=== PATIENT | female | born 1950 | race Caucasian/White ===

== ENCOUNTER 2016-11-18 10:32 | Inpatient (IN) | payer MEDICARE, MEDICAID ==
[~2016-11-18] VITALS: Ht 165.1 cm; Wt 65.8 kg
--- NOTE | 2016-11-18 10:53 | NUR ---
PT REC;D TO ER VIA EMS FROM [facility] AND [facility] . SOB TX IN FIELD SATS 98% IV HEPLOCKED LEFT AC 20G SITE GOOD DEMENTIAAWAITING EVALUATION BY ER PROVIDER.
[2016-11-18] MEDS ORDERED: IV NS 0.9% 1,000 ML BAG IV ONE (11:00)
[2016-11-18] MEDS ORDERED: CEFTRIAXONE 1GM BAG (ER ONLY) 50 ML IV ONE ×2 (11:00→11:02)
[2016-11-18] MEDS ORDERED: VANCOMYCIN 1 GM in IV D5W 250 ML IV ONE (11:00)
[2016-11-18] MEDS ORDERED: AZITHROMYCIN 500 MG in IV D5W 250 ML IV ONE (11:00)
[2016-11-18] MEDS ORDERED: IV NS 0.9% 1,000 ML ONE ×2 (11:02→11:37)
[2016-11-18] MEDS ORDERED: IV SET PRIMARY PUMP SET 1 EA INFUS.SET MC ONE ×2 (11:02→16:35)
[2016-11-18 11:10] LABS: BASOPHILS % (AUTO) 0.2 % (0.0-2.0); EOSINOPHILS % (AUTO) 0.2 % (0.0-6.0); HEMATOCRIT 50 % (33-45); HEMOGLOBIN 14.9 g/dL (11.5-14.8); LYMPHOCYTES # (AUTO) 0.7 /CMM (0.8-4.8); LYMPHOCYTES % (AUTO) 5.1 % (20.0-44.0); MEAN CORPUSCULAR HEMOGLOBIN 28 PG (26.0-33.0); MEAN CORPUSCULAR HGB CONC 30 g/dl (31.0-36.0); MEAN CORPUSCULAR VOLUME 92 fL (82-100); MONOCYTES # (AUTO) 1.3 /CMM (0.1-1.30); MONOCYTES % (AUTO) 10.1 % (2.0-12.0); NEUTROPHILS # (AUTO) 11.1 /CMM (1.8-8.9); NEUTROPHILS % (AUTO) 84.4 % (43.0-81.0); PLATELET COUNT (AUTO) 198 /CMM (150-450); RDW COEFFICIENT OF VARIATION 14.2 (11.5-15.0); RED BLOOD CELL COUNT(AUTO) 5.41 MIL/uL (4.0-5.2); WHITE BLOOD COUNT (AUTO) 13.1 K/uL (4.3-11.0)
--- NOTE | 2016-11-18 11:15 | NUR ---
ZITHRO IVP LEFT AC 20G INFUSING AND NS BOLUS X2 1000 SITE IS WELL ROCHEPHIN RT AC 20G INFUSING WELL PT ABLE TO FOLLOW COMMANDS. CONT TO MONITOR
[2016-11-18 11:33] LABS: CALCIUM, SERUM 8.6 mg/dL (8.5-10.1); CARBON DIOXIDE 33 mmol/L (21-32); CHLORIDE 101 mmol/L (98-107); GLUCOSE 110 mg/dL (74-106); SODIUM SERUM 137 mmol/L (136-145)
[2016-11-18 11:34] LABS: CREATININE 1.3 mg/dL (0.6-1.3); UREA NITROGEN, BLOOD 23 mg/dL (7-18)
--- NOTE | 2016-11-18 11:35 | NUR ---
IV SITES GOOD INFUSING WELL PT SKIN DRY PINK SLEEPING
[2016-11-18] MEDS ORDERED: IV SET PRIMARY 1 EA INFUS.SET MC ONE (11:36)
[2016-11-18] MEDS ORDERED: ACET-868 PO (11:37)
[2016-11-18] MEDS ORDERED: MAGN400O6 PO (11:37)
[2016-11-18] MEDS ORDERED: BENA20TA2 PO (11:37)
[2016-11-18] MEDS ORDERED: AMLO5TAB2 PO (11:37)
[2016-11-18] MEDS ORDERED: MIRT15TA PO (11:37)
[2016-11-18] MEDS ORDERED: PALI117D IM (11:37)
[2016-11-18] MEDS ORDERED: MULT1TAB11 PO (11:37)
[2016-11-18] MEDS ORDERED: BISA5TAB10 PO (11:37)
[2016-11-18 11:38] LABS: TROPONIN I < 0.017 ng/mL (0.00-0.056)
[2016-11-18 11:39] LABS: INR 1.02 (0.87-1.13); PROTHROMBIN TIME 10.6 SECS (9.5-12.7)
[2016-11-18 11:40] LABS: ALANINE AMINOTRANSFERASE 12 U/L (12-78); ALBUMIN 2.8 g/dL (3.4-5.0); ALKALINE PHOSPHATASE 105 U/L (46-116); ASPARTATE AMINOTRANSFERASE 18 U/L (15-37); BILIRUBIN,DIRECT 0.1 mg/dL (0.0-0.2); BILIRUBIN,TOTAL 0.4 mg/dL (0.2-1.0); TOTAL PROTEIN, SERUM 7.6 g/dL (6.4-8.2)
[2016-11-18] MEDS ORDERED: ONDANSETRON HCL/PF 4 MG/2 ML VIAL ONE (11:44)
[2016-11-18] MEDS ORDERED: ONDANSETRON HCL/PF 4 MG/2 ML VIAL IV ONE (12:00)
[2016-11-18 12:03] LABS: APPEARANCE,URINE Clear (CLEAR); BILIRUBIN,URINE Negative (NEGATIVE); BLOOD, URINE Trace-lysed Ery/uL (NEGATIVE); COLOR,URINE Yellow (YELLOW); KETONES,URINE Negative (NEGATIVE); LEUKOCYTE ESTERASE ,URINE Negative (NEGATIVE); NITRITE, URINE Negative (NEGATIVE); PH,URINE 5.5 (5.0-8.0); PROTEIN,URINE 30 mg/dl (NEGATIVE); UGLUCOSE Negative (NEGATIVE); UROBILINOGEN,URINE 0.2 EU/dL (0.2)
[2016-11-18 12:17] LABS: RBC,URINE 0-2 /HPF (0-2)
[2016-11-18 12:18] LABS: BACTERIA,URINE Few /HPF (None Seen); SQUAMOUS EPITHELIAL CELL,UR Moderate /HPF (None Seen); WBC,URINE 0-2 /HPF (0-3)
--- NOTE | 2016-11-18 12:52 | NUR ---
PAGED LVN FOR PANEL DR BOWLES
--- NOTE | 2016-11-18 12:58 | NUR ---
REPORT GIVEN TO CESILIA RN - RAFFI NURSE- CONTINUE PLAN OF CARE
--- NOTE | 2016-11-18 13:09 | NUR ---
TD/RN REPORT FROM ER RECEIVED REPORT FROM MICAELA GUPTA. FOR PT TO BE ADMITTED FOR PNEUMONIA UNDER THE CARE OF DR. BOWLES. AWAITING FOR PT'S ARRIVAL.
--- NOTE | 2016-11-18 13:15 | NUR ---
TD/LOG SAWYER TO TD - ROOM 119#1 PT ARRIVED VIA GURNEY FROM ER ACCOMPANIED BY ER NURSE AND BOTTOM STEEP TENDER. PT TRANSFERRED TO HOSPITAL BED. PT LETHARGIC. PT PLACE ON 15L O2 NON-REBREATHER MASK, SATURATING @ 98%, LUNG SOUNDS FROM DIMINISHED TO RHONCHI. ON TELE WITH SINUS RHYTHM, HR 97. IV SITES FLUSHED, PATENT, SL. CORBETT CATHETER INTACT, NOTED WITH YELLOW CLOUDY URINE OUTPUT WITH SEDIMENTS. ADMITTING PROTOCOLS BEING PROCESSED. AWAITING FOR ADMITTING ORDERS FROM DR. BOWLES. CL WITHIN REACHED AND SAFETY MAINTAINED. ON GOING MONITORING.
[2016-11-18 14:00] VITALS: BP 81/44
[2016-11-18] MEDS ORDERED: Z GUARD REMEDY 2 OZ OINT TP PRN (14:30)
[2016-11-18] MEDS ORDERED: ONDANSETRON HCL/PF 4 MG/2 ML VIAL IVP PRN (14:30)
[2016-11-18] MEDS ORDERED: ACETAMINOPHEN 325 MG TABLET PO PRN (14:30)
[2016-11-18] MEDS ORDERED: MAG HYDROX/AL HYDROX/SIMETH 30 ML UDC PO PRN (14:30)
[2016-11-18] MEDS ORDERED: ZOLPIDEM TARTRATE 5 MG TABLET PO PRN (14:30)
[2016-11-18] MEDS ORDERED: MAGNESIUM HYDROXIDE 30 ML UDC PO PRN ×2 (14:30)
[2016-11-18] MEDS: IV NS 0.9% 1,000 ML IV SCH (15:00)
[2016-11-18] MEDS ORDERED: IV NS 0.9% 1,000 ML IV ONE (15:00)
[2016-11-18 16:00] VITALS: BP 85/55
[2016-11-18 16:39] VITALS: BP 85/55
[2016-11-18] MEDS: ENOXAPARIN SODIUM 40 MG/0.4 ML DISP.SYRIN SQ SCH (16:51)
--- NOTE | 2016-11-18 19:45 | NUR ---
RN INITIAL NOTE RECEIVED PT IN NO ACUTE DISTRESS IN BED. PT IS A/O X 1 WITH PERIODS OF CONFUSION. PT IS ON O2 VIA NON REBREATHER MASK @ 15LPM AND TOLERATING WELL WITH O2 SAT @ 100%. PT NOT C/O ANY SOB, DIFFICULTY BREATHING OR PAIN AT THIS TIME. PT IS ON TELE WITH ST ON THE MONITOR. PT HAS F/C THAT IS CLEAN DRY INTACT AND PATENT WITH CLEAR YELLOW URINE DRAINING. PT HAS LAC 20G THAT IS CLEAN DRY INTACT AND PATENT WITH SALINE LOCK. PT HAS R HAND 20G THAT IS CLEAN DRY INTACT AND PATENT WITH NS @ 100ML/HR AND TOLERATING WELL. BED IN LOW LOCK POSITION WITH RIALS UP X 2. CALL LIGHT WITHIN REACH AND ALL SAFETY MEASURES ENSURED AND CARRIED OUT.
--- NOTE | 2016-11-18 19:55 | NUR ---
TD/RN AM SHIFT END NOTES PT HAS AWAKEN MORE ALERT. NO ACUTE CHANGE OF CONDITION. ALL NEEDS MET. PT ENDORSED TO PM NURSE TO CONTINUE CARE. CL WITHIN REACHED AND SAFETY MAINTAINED. DR. CASE NOTIFIED US THET HE IS THE PRIMARY MD. NOTED.
[2016-11-18 20:00] VITALS: BP 88/40
[2016-11-18] MEDS ORDERED: MIRTAZAPINE 15 MG TABLET PO SCH (22:00)
[2016-11-18 23:02] LABS: ABG PCO2 104.1 mmHg (35.0-45.0); ABG PO2 223.5 mmHg (75.0-100.0); AaDO2 237.6 mmHg; COHb 0.5 % (0.5-1.5); MetHb 0.7 % (0.0-1.5); O2Hb 97.8 % (94.0-97.0); SITE, ABG Left Radial; VENT MODE, BG NRB
--- NOTE | 2016-11-18 23:15 | NUR ---
RN NOTE DR SHANKS ARRIVED FROM ER TO INTUBATE PT.
--- NOTE | 2016-11-18 23:20 | NUR ---
RN NOTE RECEIVED ORDERS FROM DR CASE POST INTUBATION. READBACK PERFORMED AND WILL INPUT ORDERS.
--- NOTE | 2016-11-18 23:22 | NUR ---
RN NOTE RECEIVED ORDERS FROM DR CASE TO MOVE PT TO ICU AND INTUBATE DUE TO ABNORMAL ABG. READBACK ORDERS PERFORMED.
[2016-11-18 23:30] VITALS: BP 121/56
--- NOTE | 2016-11-18 23:30 | NUR ---
RN NOTE DR SHANKS INTUBATED PT SUCCESSFULLY WITH POSITIVE CO2 DETECTOR AND POSITIVE AUSCULTATION OF BILATERAL LUNG SOUNDS. AWAITING X RAY FOR POSITIVE PLACEMENT.
[2016-11-18] MEDS ORDERED: FENTANYL PF 100MCG/2ML AMPUL ONE (23:32)
[2016-11-18] MEDS ORDERED: PROPOFOL 100 ML IV ONE (23:32)
[2016-11-18] MEDS ORDERED: PANTOPRAZOLE 40 MG VIAL ONE (23:50)
[2016-11-19] VITALS (103 sets, daily range): BP systolic 38–137; BP diastolic 21–77
[2016-11-19] MEDS ORDERED: ROCURONIUM BROMIDE 50 MG/5 ML IV ONE
[2016-11-19] MEDS ORDERED: ETOMIDATE 2 MG/ML VIAL IV ONE
[2016-11-19] MEDS ORDERED: FENTANYL PF 100MCG/2ML AMPUL IV ONE
--- NOTE | 2016-11-19 | NUR ---
RN NOTE REMOVED ALL STK MED FOR PT SAFETY.
[2016-11-19] MEDS ORDERED: IV NS 0.9% 1,000 ML ONE (00:22)
[2016-11-19] MEDS ORDERED: NOREPINEPHRINE 16 MG in IV D5W 500 ML IV PRN ×3 (00:30→19:30)
[2016-11-19] MEDS ORDERED: IV NS 0.9% 1,000 ML IV PRN (00:30)
[2016-11-19] MEDS ORDERED: PANTOPRAZOLE 40 MG VIAL IV SCH (00:30)
[2016-11-19] MEDS ORDERED: AZITHROMYCIN 250 MG in IV D5W 250 ML IV SCH (00:30)
[2016-11-19] MEDS ORDERED: NOREPINEPHRINE 4 MG/4 ML AMPUL IV ONE (00:34)
[2016-11-19] MEDS ORDERED: IV D5W 500 ML IV ONE (00:34)
[2016-11-19] MEDS ORDERED: IV SET PRIMARY PUMP SET 1 EA INFUS.SET MC ONE ×6 (00:40→21:38)
[2016-11-19 01:14] LABS: ABG BASE EXCESS -5.4 mmol/L; ABG OXYGEN SATURATION 99.3 % (92.0-98.5); ABG PCO2 52.7 mmHg (35.0-45.0); ABG PH 7.245 (7.350-7.450); ABG PO2 472.9 mmHg (75.0-100.0); AaDO2 114.8 mmHg; COHb 0.3 % (0.5-1.5); MetHb 0.5 % (0.0-1.5); O2Hb 98.5 % (94.0-97.0); PEEP,BG 0 cm H2O; SITE, ABG Right Radial; VT, ABG 450 mL
[2016-11-19] MEDS ORDERED: ALBUTEROL FS 2.5 MG/0.5 ML VIAL.NEB NEB PRN (01:30)
[2016-11-19] MEDS ORDERED: IPRATROPIUM NEB FS 0.5 MG/2.5 ML AMPUL.NEB NEB PRN (01:30)
[2016-11-19] MEDS: IPRATROPIUM NEB FS 0.5 MG/2.5 ML AMPUL.NEB NEB SCH ×6 (02:55→23:12)
[2016-11-19] MEDS: ALBUTEROL FS 2.5 MG/0.5 ML VIAL.NEB NEB SCH ×6 (02:55→23:12)
[2016-11-19] MEDS: PROPOFOL 100 ML IV PRN ×2 (03:26→18:24)
[2016-11-19] MEDS: IV NS 0.9% 1,000 ML IV SCH (03:47)
[2016-11-19 05:01] LABS: BASOPHILS % (AUTO) 0.1 % (0.0-2.0); HEMATOCRIT 42 % (33-45); HEMOGLOBIN 13.3 g/dL (11.5-14.8); LYMPHOCYTES # (AUTO) 1.2 /CMM (0.8-4.8); LYMPHOCYTES % (AUTO) 9.8 % (20.0-44.0); MEAN CORPUSCULAR HEMOGLOBIN 29 PG (26.0-33.0); MEAN CORPUSCULAR HGB CONC 32 g/dl (31.0-36.0); MEAN CORPUSCULAR VOLUME 91 fL (82-100); MONOCYTES # (AUTO) 1.8 /CMM (0.1-1.30); MONOCYTES % (AUTO) 14.7 % (2.0-12.0); NEUTROPHILS % (AUTO) 75.4 % (43.0-81.0); PLATELET COUNT (AUTO) 164 /CMM (150-450); RDW COEFFICIENT OF VARIATION 15.1 (11.5-15.0); RED BLOOD CELL COUNT(AUTO) 4.58 MIL/uL (4.0-5.2)
[2016-11-19 05:17] LABS: CALCIUM, SERUM 7.2 mg/dL (8.5-10.1); CREATININE 1.8 mg/dL (0.6-1.3); MAGNESIUM 1.7 mg/dL (1.8-2.4); PHOSPHORUS 5.5 mg/dL (2.5-4.9); POTASSIUM 5.2 mmol/L (3.5-5.1)
[2016-11-19 05:51] LABS: BAND % (MANUAL) 8 % (0.0-5.0); LYMPHOCYTES % (MANUAL) 9 % (16-48); MONOCYTES % (MANUAL) 10 % (0-11.0); NEUTROPHILS % (MANUAL) 73 (42-76)
--- NOTE | 2016-11-19 07:00 | NUR ---
PT RECEIVED ORALLY INTUBATED ON MECHANICAL VENT W/ SETTINGS PER MD. VENT IN RED OUTLET, AMBUBAG AT BEDSIDE, VENT ALARMS CHECKED AND AUDIBLE. ETT SECURED W/ ANCHOFAST AND PATENT. PT SX'ED AND LAVAGED PRN. NO RESP DISTRESS NOTED. PLAN IS TO CONTINUE W/ CURRENT CARE PER MD ORDERS AND MONITOR FOR CHANGES IN STATUS. Addendum: 11/19/16 at 0838 by CELESTE WALTER RT Amended: Links added.
--- NOTE | 2016-11-19 07:15 | NUR ---
RN NOTE PLACED NG TUBE VIA MOUTH WITH POSITIVE PLACEMENT BY AUSCULTATION OF AIR AND AWAITING CXR.
--- NOTE | 2016-11-19 07:22 | NUR ---
RN CLOSING NOTE PT REMAINS IN NO ACUTE DISTRESS POST INTUBATION. PT TOLERATING VENT SETTINGS WHICH ARE AC 12 TV 400 FIO2 40 PEEP 5. PT O2 SAT @ 94%. ALL NEEDS MET, ALL ORDERS CARRIED OUT. WILL ENDORSE TO AM RN FOR CONTINUITY OF CARE.
[2016-11-19] MEDS ORDERED: PANTOPRAZOLE 40 MG TABLET.DR PO SCH (07:30)
--- NOTE | 2016-11-19 07:30 | NUR ---
RT MED NOTE HHN MEDS NOT AVAILABLE FROM [employer]. WILL ATTEMPT AT LATER TIME
--- NOTE | 2016-11-19 07:59 | NUR ---
ICU/RN INITIAL NOTES,AM RECEIVED PT INTUBATED ETT 7.5, 23 CM AT THE LIP. PT ON VENT SETTINGS ORDERED BY MD, NO ACUTE DISTRESS NOTED AT THIS TIME. PT SEDATED ON 15MCG OF DIPRIVAN. LEVOPHED INFUSING FOR BP SUPPORT. PT SINUS TACKY ON TELE. CORBETT CATH IN PLACE DRAINING YELLOW URINE. ORDERS PLACED FOR PICC LINE, CONSENT IN CHART SIGNED BY MD. ALL NEEDS WILL BE MET, SAFETY MEASURES TAKEN, BED IN LOW POSITION, SIDE RAILS UP. BILATERAL WRIST RESTRAINS ON, ASSESSED PER PROTOCOL.
[2016-11-19] MEDS ORDERED: MULTIVIT, IRON, MIN NO. 8, FA 1 TAB PO SCH (09:00)
--- NOTE | 2016-11-19 09:00 | NUR ---
ICU/RN: SEDATION VACATION: DIPRIVAN TITRATED OFF, PT OPENED EYES, FOLLOWS COMMANDS. RESUME DIPRIVAN PER PROTOCOL
[2016-11-19] MEDS: Magnesium 1GM/D5W 100ML PREMIX 100 ML IV SCH ×3 (09:48→13:00)
[2016-11-19] MEDS: PANTOPRAZOLE 40 MG VIAL IV SCH (09:48)
[2016-11-19] MEDS ORDERED: SECONDARY IV SET 1 EA INFUS.SET MC ONE (09:58)
[2016-11-19] MEDS: methylPREDNISolone SOD SUCC 125 MG/2ML VIAL IV SCH ×2 (11:21→12:59)
[2016-11-19] MEDS: CEFTRIAXONE 1 G in IV D5W 50 ML IV SCH (11:25)
[2016-11-19] MEDS: AZITHROMYCIN 250 MG in IV D5W 250 ML IV SCH (12:54)
[2016-11-19] MEDS: IV NS 0.9% 1,000 ML IV PRN (13:26)
[2016-11-19] MEDS ORDERED: DEXTROSE 50%-WATER 50 ML DISP.SYRIN IV PRN (15:30)
[2016-11-19] MEDS: BLOOD SUGAR DIAGNOSTIC 1 EACH STRIP IN SCH ×2 (18:24→23:19)
--- NOTE | 2016-11-19 18:30 | NUR ---
ICU/RN: BLOOD GLUCOSE 175. INSULIN HELD DUE TO PT NPO. AWARE. WILL CONTINUE TO MONITOR AND ASSESS
--- NOTE | 2016-11-19 19:28 | NUR ---
ICU/RN ENDING NOTES,AM REPORT ENDORSED TO NIGHT NURSE FOR CONTINUATION OF CARE. ALL NEEDS MET. PT INTUBATED, ETT 7.5, 23 CM AT THE LIP. ON VENT SETTINGS ORDERED BY MD, NO ACUTE DISTRESS NOTED. PT BATHED, TURNED AND REPOSITIONED. LEVO INFUSING FOR BP SUPPORT, DIPRIVAN INFUSING AT 15MCG FOR SEDATION. SAFETY MEASURES TAKEN, BED IN LOW POSITION, SIDE RAILS UP, CALL LIGHT WITHIN REACH. WILL CONTINUE CARE
[2016-11-19] MEDS: INSULIN REGULAR, HUMAN 100 UNIT/ML 3 ML VIAL SQ PRN ×2 (19:32→23:19)
--- NOTE | 2016-11-19 19:39 | NUR ---
PT RECEIVED ORALLY INTUBATED W/ 7.5 ETT @ 23 CM LIP WITH NOTED SETTING PER MD ORDERS. VENT PLUGGED INTO RED OUTLET. SX MODERATE AMOUNT OF WHITE THICK SECRETIONS, BILATERAL BS NOTED. AMBU BAG AT [facility]. ALARM SET AND AUDIBLE PER POLICY. DISCONNECT ALARM VERIFIED. NO SOB OR RESP DISTRESS NOTED AT THIS TIME. WILL CONTINUE TO MONITOR THE PATIENT.
--- NOTE | 2016-11-19 20:06 | NUR ---
RN NOTES RECEIVED PX SEDATED ON PROPOFOL, EASILY AROUSABLE WITH LIGHT PAIN, ETT WITH CUFF INTACT TO VENT, OGT CLAMPED, ALL IV ACCESS FLUSHED PATENT INTACT, WITH BILAT SOFT WRIST RESTRAINTS, PX WAKES UP EPISODICALLY, ATTEMPTING TO REACH FOR BED; CORBETT CATH TAPED TO THIGH TO BAG BY GRAVITY, HEELS OFFLOADED; REPOSITIONED, HOB AT 30 ANGLE, SUCTIONED ORALL AND VIA ETT. V/S WNL, ON LEVOPHED DRIP.
[2016-11-19] MEDS: ENOXAPARIN SODIUM 40 MG/0.4 ML DISP.SYRIN SQ SCH (21:45)
--- NOTE | 2016-11-19 23:20 | NUR ---
RN NOTES NO INSULIN GIVEN PX IS NPO AND NO D5 CONTAINING IVF IS RUNNING.
[2016-11-20] VITALS (79 sets, daily range): BP systolic 96–146; BP diastolic 52–89
[2016-11-20] MEDS: PROPOFOL 100 ML IV PRN ×3 (01:05→18:46)
[2016-11-20] MEDS: IV NS 0.9% 1,000 ML IV PRN ×3 (01:05→21:04)
[2016-11-20] MEDS: ALBUTEROL FS 2.5 MG/0.5 ML VIAL.NEB NEB SCH ×5 (03:45→19:57)
[2016-11-20] MEDS: IPRATROPIUM NEB FS 0.5 MG/2.5 ML AMPUL.NEB NEB SCH ×5 (03:45→19:57)
--- NOTE | 2016-11-20 04:55 | NUR ---
RN NOTES CONDITION AND NEURO STATUS UNCHANGED; CONTINUED LEVOPHED TITRATION, NOW DOWN TO 5 MCG/MIN; CLEANED PX AND CHANGED GOWN AND BED LINENS, ORAL CARE, CORBETT CARE RENDERED, NO SKIN BREAKDOWN, SKIN REDNESS ON BILAT BUTTOCKS HAS LESSENED COMPARED TO PREVIOUS PICTURE; NO NEW SKIN BREAKDOWN.
[2016-11-20] MEDS: INSULIN REGULAR, HUMAN 100 UNIT/ML 3 ML VIAL SQ PRN (05:25)
[2016-11-20] MEDS: BLOOD SUGAR DIAGNOSTIC 1 EACH STRIP IN SCH ×4 (05:25→23:39)
--- NOTE | 2016-11-20 06:32 | NUR ---
RN NOTES CONDITION AND NEURO STATUS UNCHANGED; RESPOSITIONED AND SUCTIONED ORALLY AND VIA ETT; NO NEW SKIN BREAKDOWN, IV ACCESS FLUSHED PATENT INTACT; V/S WNL, CONTINUED LEVOPHED TITRATION. WILL ENDORSE TO NEXT RN.
--- NOTE | 2016-11-20 07:18 | NUR ---
RN NOTES REPORT GIVEN TO ARPI RN FOR COTINUITY OF CARE.
--- NOTE | 2016-11-20 07:40 | NUR ---
ICU/RN INITIAL NOTES,AM RECEIVED PT INTUBATED ETT 7.5, 23 CM AT THE LIP. PT ON VENT SETTINGS ORDERED BY MD, NO ACUTE DISTRESS NOTED AT THIS TIME. PT SEDATED ON 20 MCG OF DIPRIVAN. LEVOPHED INFUSING, LOW DOSE FOR BP SUPPORT. PT SINUS ON TELE. CORBETT CATH IN PLACE DRAINING YELLOW URINE. OG TUBE IN PLACE AND CLAMPED, PLACEMENT CHECKED AND VERIFIED. ALL NEEDS WILL BE MET, SAFETY MEASURES TAKEN, BED IN LOW POSITION, SIDE RAILS UP. BILATERAL WRIST RESTRAINS ON, ASSESSED PER PROTOCOL.
[2016-11-20 08:38] LABS: HEMATOCRIT 40 % (33-45); HEMOGLOBIN 12.8 g/dL (11.5-14.8); LYMPHOCYTES # (AUTO) 0.5 /CMM (0.8-4.8); LYMPHOCYTES % (AUTO) 6.5 % (20.0-44.0); MEAN CORPUSCULAR HEMOGLOBIN 29 PG (26.0-33.0); MEAN CORPUSCULAR HGB CONC 33 g/dl (31.0-36.0); MEAN CORPUSCULAR VOLUME 91 fL (82-100); MONOCYTES # (AUTO) 0.3 /CMM (0.1-1.30); MONOCYTES % (AUTO) 3.3 % (2.0-12.0); NEUTROPHILS # (AUTO) 7.4 /CMM (1.8-8.9); NEUTROPHILS % (AUTO) 90.2 % (43.0-81.0); PLATELET COUNT (AUTO) 174 /CMM (150-450); RDW COEFFICIENT OF VARIATION 15.1 (11.5-15.0); RED BLOOD CELL COUNT(AUTO) 4.36 MIL/uL (4.0-5.2); WHITE BLOOD COUNT (AUTO) 8.2 K/uL (4.3-11.0)
[2016-11-20 08:47] LABS: CREATININE 1.9 mg/dL (0.6-1.3); POTASSIUM 4.5 mmol/L (3.5-5.1)
[2016-11-20] MEDS: PANTOPRAZOLE 40 MG VIAL IV SCH (08:51)
[2016-11-20] MEDS: predniSONE 20 MG TABLET NG SCH (08:51)
[2016-11-20 09:00] LABS: ABG BASE EXCESS -4.6 mmol/L; ABG OXYGEN SATURATION 97.2 % (92.0-98.5); ABG PCO2 52.1 mmHg (35.0-45.0); ABG PH 7.259 (7.350-7.450); ABG PO2 106.3 mmHg (75.0-100.0); AaDO2 82.7 mmHg; COHb 0.3 % (0.5-1.5); MetHb 0.5 % (0.0-1.5); O2Hb 96.4 % (94.0-97.0); PEEP,BG 5 cm H2O; SITE, ABG Right Radial; VT, ABG 400 mL
--- NOTE | 2016-11-20 09:00 | NUR ---
ICU/RN SEDATION VACATION DONE, PT OPENS EYES, FOLLOWS COMMANDS. RESUMED SEDATION PER PROTOCOL.
[2016-11-20] MEDS ORDERED: IV SET PRIMARY PUMP SET 1 EA INFUS.SET MC ONE (11:20)
[2016-11-20] MEDS: CEFTRIAXONE 1 G in IV D5W 50 ML IV SCH (11:22)
[2016-11-20] MEDS: AZITHROMYCIN 250 MG in IV D5W 250 ML IV SCH (11:55)
--- NOTE | 2016-11-20 18:19 | NUR ---
RT NOTE: PATIENT RECEIVED ORALLY INTUBATED WITH 7.5 ETT SECURED WITH ANCHOR FAST AT 23 CM MID LIP LINE ON VENT. ETT MOVED FROM RIGHT TO LEFT SIDE OF MOUTH PER POLICY. ALARMS VERIFIED AND AUDIBLE. VENT CHANGES PER MD ORDER. SUCTIONED AND LAVAGED MODERATE-LARGE AMOUNT OF THIN CLEAR/WHITE SECRETIONS VIA ETT AND ORALLY. VENT PLUGGED INTO RED OUTLET. AMBU BAG AT [facility].
--- NOTE | 2016-11-20 18:35 | NUR ---
ICU/RN ENDING NOTES,AM REPORT WILL BE ENDORSED TO NIGHT NURSE FOR CONTINUATION OF CARE. ALL NEEDS MET. PT ON DIPRIVAN FOR SEDATION, LEVOPHED OFF SINCE THIS AM, PT TOLERATING WELL, MAINTAINING BP >90. PT SINUS ON TELE. PT BATHE, TURNED AND REPOSITIONED, LINENS CHANGED. ALL NEEDS MET, SAFETY MEASURES TAKEN, BED IN LOW POSITION, SIDE RAILS UP, CALL LIGHT WITHIN REACH. PER MD ORDERS PT WILL BE WEANED TOMORROW.
--- NOTE | 2016-11-20 19:00 | NUR ---
RN INITIAL NOTES RECEIVED THE PATIENT SEDATED ON BED WITH DIPRIVAN @ 25MCG/KG/MIN, EASILY AROUSABLE, ABLE TO FOLLOW COMMANDS. ON VENT, AC 12, TV 450, 40% FIO2, PEEP 5, ETT 7.5/23@LIP, SATURATING WELL, NO S/S OF RESP DISTRESS. SR ON THE MONITOR, HR 80-90'S. CORBETT CATH INTACT. BILATERAL SOFT WRIST RESTRAINTS IN PLACE FOR SAFETY. RIGHT UPPER ARM PICC WITH NS @ 75MLS/HR, FLUSHED AND PATENT, NO S/S OF INFILTRATION/INFECTION, DRESSING CDI. BED LOW AND LOCKED, SIDERAILS UP. WILL MONITOR
[2016-11-20] MEDS: ENOXAPARIN SODIUM 40 MG/0.4 ML DISP.SYRIN SQ SCH (20:30)
[2016-11-21] VITALS (41 sets, daily range): BP systolic 117–156; BP diastolic 64–86
[2016-11-21] MEDS: IPRATROPIUM NEB FS 0.5 MG/2.5 ML AMPUL.NEB NEB SCH ×6 (00:21→19:50)
[2016-11-21] MEDS: ALBUTEROL FS 2.5 MG/0.5 ML VIAL.NEB NEB SCH ×6 (00:21→19:50)
[2016-11-21] MEDS ORDERED: IV SET PRIMARY PUMP SET 1 EA INFUS.SET MC ONE ×3 (00:50→23:33)
[2016-11-21] MEDS: PROPOFOL 100 ML IV PRN ×5 (00:54→21:33)
[2016-11-21] MEDS: BLOOD SUGAR DIAGNOSTIC 1 EACH STRIP IN SCH ×4 (05:31→23:40)
--- NOTE | 2016-11-21 06:30 | NUR ---
RN CLOSING NOTES PT REMAINS STABLE OF THE MOMENT. ALL DUE MEDS GIVEN, AM CARE PROVIDED. WILL ENDORSE CONTINUITY OF CARE TO AM RN
--- NOTE | 2016-11-21 08:06 | NUR ---
HOOP MAKER DIPRIVAN DRIP STOPPED ALERT ORIENTED X 2 STARTED WEANING PROCESS, VENT CHANGES DONE BY RT SUCTIONED SECRETION NECESSARY
[2016-11-21] MEDS: PANTOPRAZOLE 40 MG VIAL IV SCH (08:14)
[2016-11-21] MEDS: predniSONE 20 MG TABLET NG SCH (08:14)
[2016-11-21 09:10] LABS: ABG BASE EXCESS -5.1 mmol/L; ABG PCO2 57.2 mmHg (35.0-45.0); ABG PH 7.226 (7.350-7.450); ABG PO2 83.4 mmHg (75.0-100.0); AaDO2 99.7 mmHg; COHb 0.2 % (0.5-1.5); MetHb 0.5 % (0.0-1.5); O2Hb 93.3 % (94.0-97.0); PEEP,BG 5 cm H2O; SITE, ABG Right Radial; VT, ABG 450 mL
--- NOTE | 2016-11-21 09:27 | NUR ---
RESIDENT SERVICES SUPERVISOR PATIENT STILL HAS RESPIRATORY ACIDOSIS, PLACED BACK TO MECHANICAL VENTILATORY SUPPORT DIRPIVAN RESTARTED
[2016-11-21] MEDS: IV NS 0.9% 1,000 ML IV PRN ×2 (09:55→23:37)
[2016-11-21] MEDS ORDERED: SECONDARY IV SET 1 EA INFUS.SET MC ONE (11:11)
[2016-11-21] MEDS: CEFTRIAXONE 1 G in IV D5W 50 ML IV SCH (11:16)
[2016-11-21] MEDS ORDERED: GLUCERNA 1,000 ML BOTTLE NG PRN (12:00)
[2016-11-21] MEDS: AZITHROMYCIN 250 MG in IV D5W 250 ML IV SCH (12:15)
[2016-11-21] MEDS ORDERED: GLYTROL 1,000 ML BAG NG PRN (12:30)
--- NOTE | 2016-11-21 13:57 | NUR ---
RT NOTE: PATIENT RECEIVED ORALLY INTUBATED WITH 7.5 ETT SECURED WITH ANCHOR FAST AT 23 CM MID LIP LINE ON VENT. PATIENT WAS WEANED THIS MORNING PER 'S ORDER BUT WAS NO ABLE TO TOLERATE. ABG DONE AND REPORTED TO DR. LAWRENCE. PER MD ORDER PATIENT WAS PLACED BACK ON AC 12, VT 500, 35%, PEEP +5. ETT MOVED FROM RIGHT TO LEFT SIDE OF MOUTH PER POLICY. ALARMS VERIFIED AND AUDIBLE. SUCTIONED AND LAVAGED SMALL-MODERATE AMOUNT OF THIN WHITE SECRETIONS VIA ETT AND ORALLY. VENT PLUGGED INTO RED OUTLET. AMBU BAG AT [facility].
[2016-11-21] MEDS: LACTOBACILLUS RHAMNOSUS GG 1 EACH CAP.SPRINK GT SCH (17:26)
--- NOTE | 2016-11-21 19:10 | NUR ---
rn:icu: pt received in bed, able to open eyes and moving upper extremities. despite reorientation pt continues to reach for vital tubes and line. pt requires bilateral soft wrist restraints for patient safety. diprivan increased from 45 to 50mcg/kg/min. pt without distress. will continue to monitor closely.
[2016-11-21] MEDS: ENOXAPARIN SODIUM 40 MG/0.4 ML DISP.SYRIN SQ SCH (20:17)
[2016-11-22] VITALS (42 sets, daily range): BP systolic 92–183; BP diastolic 61–103
[2016-11-22] MEDS: IPRATROPIUM NEB FS 0.5 MG/2.5 ML AMPUL.NEB NEB SCH ×7 (00:03→22:59)
[2016-11-22] MEDS: ALBUTEROL FS 2.5 MG/0.5 ML VIAL.NEB NEB SCH ×7 (00:03→22:59)
[2016-11-22] MEDS: PROPOFOL 100 ML IV PRN ×4 (03:02→18:37)
[2016-11-22 04:48] LABS: BASOPHILS % (AUTO) 0.2 % (0.0-2.0); EOSINOPHILS % (AUTO) 0.1 % (0.0-6.0); HEMATOCRIT 34 % (33-45); HEMOGLOBIN 11.1 g/dL (11.5-14.8); LYMPHOCYTES % (AUTO) 12.1 % (20.0-44.0); MEAN CORPUSCULAR HEMOGLOBIN 29 PG (26.0-33.0); MEAN CORPUSCULAR HGB CONC 33 g/dl (31.0-36.0); MEAN CORPUSCULAR VOLUME 89 fL (82-100); MONOCYTES # (AUTO) 0.8 /CMM (0.1-1.30); MONOCYTES % (AUTO) 9.6 % (2.0-12.0); NEUTROPHILS # (AUTO) 6.2 /CMM (1.8-8.9); PLATELET COUNT (AUTO) 190 /CMM (150-450); RDW COEFFICIENT OF VARIATION 14.5 (11.5-15.0); RED BLOOD CELL COUNT(AUTO) 3.79 MIL/uL (4.0-5.2); WHITE BLOOD COUNT (AUTO) 7.9 K/uL (4.3-11.0)
[2016-11-22 04:49] LABS: CALCIUM, SERUM 7.7 mg/dL (8.5-10.1); CREATININE 1.6 mg/dL (0.6-1.3); POTASSIUM 3.8 mmol/L (3.5-5.1)
[2016-11-22] MEDS: BLOOD SUGAR DIAGNOSTIC 1 EACH STRIP IN SCH ×3 (05:18→17:23)
[2016-11-22] MEDS: LACTOBACILLUS RHAMNOSUS GG 1 EACH CAP.SPRINK GT SCH ×2 (08:05→17:23)
[2016-11-22] MEDS: PANTOPRAZOLE 40 MG VIAL IV SCH (08:06)
[2016-11-22] MEDS: predniSONE 20 MG TABLET NG SCH (08:06)
[2016-11-22 08:45] LABS: ABG BASE EXCESS -2.2 mmol/L; ABG OXYGEN SATURATION 93.5 % (92.0-98.5); ABG PCO2 52.6 mmHg (35.0-45.0); ABG PH 7.292 (7.350-7.450); ABG PO2 77.7 mmHg (75.0-100.0); AaDO2 110.7 mmHg; COHb 0.3 % (0.5-1.5); MetHb 0.5 % (0.0-1.5); O2Hb 92.8 % (94.0-97.0); PEEP,BG 5 cm H2O; SITE, ABG Right Radial; VT, ABG 500 mL
--- NOTE | 2016-11-22 09:40 | NUR ---
DR. LAWRENCE SHOWED AM ABG. ORDERS TO INCREASE TV TO 550. NO WEANING TRIAL TODAY.
[2016-11-22] MEDS: CEFTRIAXONE 1 G in IV D5W 50 ML IV SCH (10:16)
[2016-11-22] MEDS: AZITHROMYCIN 250 MG in IV D5W 250 ML IV SCH (10:48)
[2016-11-22] MEDS: INSULIN REGULAR, HUMAN 100 UNIT/ML 3 ML VIAL SQ PRN (11:19)
[2016-11-22] MEDS: IV NS 0.9% 1,000 ML IV PRN (13:05)
--- NOTE | 2016-11-22 15:00 | NUR ---
RT NOTE: PATIENT RECEIVED ORALLY INTUBATED WITH 7.5 ETT SECURED WITH ANCHOR FAST AT 23 CM MID LIP LINE ON VENT. ETT MOVED FROM RIGHT TO LEFT SIDE OF MOUTH PER POLICY. ALARMS VERIFIED AND AUDIBLE. VENT CHANGES PER MD ORDER. SUCTIONED AND LAVAGED MODERATE-LARGE AMOUNT OF THIN WHITE BLOOD TINGED SECRETIONS VIA ETT AND ORALLY. VENT PLUGGED INTO RED OUTLET. AMBU BAG AT [facility].
[2016-11-22] MEDS: IV D5W 1,000 ML IV PRN (17:27)
--- NOTE | 2016-11-22 18:18 | NUR ---
Referral sent to [facility] ICU bed sent to Josephine -intake [phone] Mcfarland request. Galeana will eval in am per Josephine at [place] Addendum: 11/22/16 at 1818 by MANUEL ESQUIVEL RN Amended: Links added.
[2016-11-22] MEDS: HYDROCODONE/APAP 5/325MG 1 EACH TABLET PO PRN (18:46)
--- NOTE | 2016-11-22 19:24 | NUR ---
GALVANOMETER ASSEMBLER: RN RECEIVED CALL FROM DR CASE MADE AWARE ABOUT ELEVATED BP 182/89, MD DOESN'T WANT TO START ANY BP MEDICATION UNLESS SBP> 220 AND DIASTOLIC >120, JUST ORDERED LASIX 20 MG IV DAILY. WILL GIVE LASIX 20 MG IV FIRST DOSE NOW PER MD.
[2016-11-22] MEDS ORDERED: IV SET PRIMARY PUMP SET 1 EA INFUS.SET MC ONE (19:32)
--- NOTE | 2016-11-22 19:37 | NUR ---
RT PATIENT REC'D ORALLY INTUBATED ON [facility] VENT WITH SETTINGS SET PER MD NATALYA PINEDA. VENT ALARMS CHECKED + AUDIBLE. CUFF PRESSURE CHECKED LAN ENGINEER. ETT SECURE AND IN PROPER POSITION. VENT PLUGGED INTO RED OUTLET. B/S DIM COARSE. SX'D WITH SM/MD GUANT PALE SEMITHICK SECRETIONS. NO DISTRESS AT THIS TIME. AMBU BAG AT [facility]. CONT CURRENT PLAN OF RESP CARE. Addendum: 11/22/16 at 1938 by CIARA LORA RT Amended: Links added.
[2016-11-22] MEDS: FUROSEMIDE 20 MG/2 ML VIAL IV SCH (19:40)
--- NOTE | 2016-11-22 20:00 | NUR ---
SINGLE STAYER OPERATOR; RECEIVED THE PATIENT SEDATED WITH DIPRIVAN @ 40MCG/KG/MIN, ON VENT, AC 12, TV 450, 35% FIO2, PEEP 5, ETT 7.5/23@LIP, SATURATING WELL, NO S/S OF RESP DISTRESS. SR ON THE MONITOR, HR 80-90'S. CORBETT CATH INTACT. PLACE FOR SAFETY. RIGHT UPPER ARM PICC WITH NS @ 75MLS/HR, FLUSHED AND PATENT, NO S/S OF INFILTRATION/INFECTION, DRESSING CDI. BED LOW AND LOCKED, SIDERAILS UP. WILL MONITOR Addendum: 11/22/16 at 2226 by KATHERINE GÓMEZ RN D5 W AT 50 ML/HR.
[2016-11-22] MEDS: ENOXAPARIN SODIUM 40 MG/0.4 ML DISP.SYRIN SQ SCH (21:10)
[2016-11-23] VITALS (35 sets, daily range): BP systolic 114–180; BP diastolic 69–103
[2016-11-23] MEDS: BLOOD SUGAR DIAGNOSTIC 1 EACH STRIP IN SCH ×5 (00:11→23:39)
[2016-11-23] MEDS: PROPOFOL 100 ML IV PRN ×5 (00:36→19:50)
[2016-11-23] MEDS: ALBUTEROL FS 2.5 MG/0.5 ML VIAL.NEB NEB SCH ×6 (03:53→23:25)
[2016-11-23] MEDS: IPRATROPIUM NEB FS 0.5 MG/2.5 ML AMPUL.NEB NEB SCH ×6 (03:53→23:25)
[2016-11-23] MEDS: FUROSEMIDE 20 MG/2 ML VIAL IV SCH (08:34)
[2016-11-23] MEDS: predniSONE 20 MG TABLET NG SCH (08:34)
[2016-11-23] MEDS: LACTOBACILLUS RHAMNOSUS GG 1 EACH CAP.SPRINK GT SCH ×2 (08:34→17:05)
[2016-11-23] MEDS: PANTOPRAZOLE 40 MG VIAL IV SCH (08:34)
[2016-11-23] MEDS: AZITHROMYCIN 250 MG in IV D5W 250 ML IV SCH (10:05)
[2016-11-23] MEDS: CEFTRIAXONE 1 G in IV D5W 50 ML IV SCH (10:06)
[2016-11-23] MEDS ORDERED: SECONDARY IV SET 1 EA INFUS.SET MC ONE (10:13)
[2016-11-23] MEDS: IV D5W 1,000 ML IV PRN (10:19)
[2016-11-23 10:42] LABS: ABG BASE EXCESS 2.8 mmol/L; ABG OXYGEN SATURATION 94.7 % (92.0-98.5); ABG PCO2 47.8 mmHg (35.0-45.0); ABG PH 7.392 (7.350-7.450); ABG PO2 75.9 mmHg (75.0-100.0); AaDO2 118.1 mmHg; COHb 0.7 % (0.5-1.5); MetHb 0.7 % (0.0-1.5); O2Hb 93.4 % (94.0-97.0); PEEP,BG 5 cm H2O; SITE, ABG Right Radial; VT, ABG 500 mL
[2016-11-23] MEDS: INSULIN REGULAR, HUMAN 100 UNIT/ML 3 ML VIAL SQ PRN (12:31)
--- NOTE | 2016-11-23 12:42 | NUR ---
Report given to Elza ORTEGA for continuity of care. Vitals stable, afebrile, normotensive. Sedated with propofol gtts @ 35mcg. No pressor. Skin intact. Suctioned mouth, oral care done. small thick white secretions on ETT suction. Addendum: 11/23/16 at 1246 by CITLALLI KUO RN No vent setting change, ETT 7.5 @ 23cm.
[2016-11-23] MEDS: GLYTROL 1,000 ML BAG NG PRN (12:49)
--- NOTE | 2016-11-23 12:50 | NUR ---
LABORER ADJUSTABLE STEEL JOIST NOTE RCVD PT INTUBATED, SEDATED ENDORSED BY SHANNON HARLEY. SR ON TELE. TOLERATING ORDERED VENT SETTINGS. ETT 7.5 22 AT LIP. TOLERATING TUBE FEEDING RATE. 20ML RESIDUAL OBSERVED UPON ASPIRATION. KIET PICC C/D/I/PATENT. NO S/O INFILTRATION/PHLEBITIS OBSERVED IVF INFUSING. CORBETT DRAINING PALE YELLOW URINE. WILL CONTINUE TO MONITOR PT FOR SAFETY AND COMFORT. BED IN LOW AND LOCKED POSITION.
[2016-11-23] MEDS ORDERED: IV NS 0.9% 250 ML IV ONE (16:51)
--- NOTE | 2016-11-23 18:30 | NUR ---
ENDING VISITOR INFORMATION ASSISTANT NOTE PT REMAINS INTUBATED, SEDATED ON DIPRIVAN. SHOWING NO S/O DISTRESS/PAIN. TOLERATING ORDERED VENT SETTINGS. SR ON TELE. CORBETT DRAINING PALE, GREEN TINTED URINE. TUBE FEEDING RESIDUAL 80 ML. HOB ELEVATED. KIET PICC C/D/I/PATENT. IVF INFUSING TKO. PT'S CARE WILL BE ENDORSED TO PARASITOLOGIST RN FOR CONTINUITY OF CARE. BED IN LOW AND LOCKED POSITION.
[2016-11-23] MEDS ORDERED: IV SET PRIMARY PUMP SET 1 EA INFUS.SET MC ONE (19:44)
--- NOTE | 2016-11-23 20:00 | NUR ---
Received patient sedated intubated on same vent settings.Well tolerated SPO2 99%.Suction small amount virgen colored secretions.SR per monitor.Afebrile and normotensive.OGT feeding in progress with HOB elevated at 35 degrees.Residual 20 ml.FC to gravity with adequate urine output.NS @ TKO infusing to KIET PICC LINE site intact.Turned and repositioned.No distress noted.
[2016-11-23] MEDS: ENOXAPARIN SODIUM 40 MG/0.4 ML DISP.SYRIN SQ SCH (20:51)
[2016-11-24] VITALS (79 sets, daily range): BP systolic 59–165; BP diastolic 49–102
[2016-11-24] MEDS: PROPOFOL 100 ML IV PRN ×3 (01:23→18:29)
--- NOTE | 2016-11-24 02:00 | NUR ---
Report given to Eugenia Silvestre RN for continuity of care.
[2016-11-24] MEDS: IPRATROPIUM NEB FS 0.5 MG/2.5 ML AMPUL.NEB NEB SCH ×6 (04:18→23:11)
[2016-11-24] MEDS: ALBUTEROL FS 2.5 MG/0.5 ML VIAL.NEB NEB SCH ×6 (04:18→23:11)
[2016-11-24] MEDS: GLYTROL 1,000 ML BAG NG PRN ×2 (04:23→20:40)
--- NOTE | 2016-11-24 04:55 | NUR ---
CONDENSER CLEANER. AM CARE, ORAL CARE, BED BATH GIVEN. LINEN CHANGED. REMAINING SAME VENT SETTINGS TOLERATED WELL. SAT 98%. NO ACUTE DISTRESS NOTED. MACHINE SOLE LEVELER SHOWING NSR. IV RT UPPER ARM PICC LINE. IV DIPRIVAN 25MCG/KG/MIN. OGT FEEDING TOLERATED WELL. SAT 97%. FC PATENT URINE DRAINING. HOB ELEVATED. TURN AND REPOSITION Q2H. WILL CONTINUE TO MONITOR.VITALS,
[2016-11-24 05:05] LABS: CALCIUM, SERUM 8.5 mg/dL (8.5-10.1); CREATININE 1.4 mg/dL (0.6-1.3); POTASSIUM 4.2 mmol/L (3.5-5.1)
--- NOTE | 2016-11-24 05:48 | NUR ---
PT REC'D ORALLY INTUBATED ON ETT SZ 7.5, SECURED @ 23CM. NO RESP DISTRESS NOTED, PT COMFORTABLE ON MECH VENT SETTINGS. SX'D THICK MOD AMT OF BLOOD TINGED SECRETIONS. MYSTERY SHOPPER CUFF PRESSURE NOTED. ALARMS ARE SET AND AUDIBLE PER POLICY. AMBU BAG IS BEDSIDE. CONTINUE CURRENT THERAPY. Addendum: 11/24/16 at 0551 by TYRELL CARBAJAL RT Amended: Links added.
[2016-11-24] MEDS: BLOOD SUGAR DIAGNOSTIC 1 EACH STRIP IN SCH ×4 (06:17→23:14)
--- NOTE | 2016-11-24 08:00 | NUR ---
HALL MANAGER: pt.is sedated with 35 mcg Diprivan, rest now, RR WNL, can open eyes spont., SR, SBP over 100, O2 sat. WNL, GTF residual 5ml, started wean off sedation, plan: SIMV today
[2016-11-24] MEDS: PANTOPRAZOLE 40 MG VIAL IV SCH (09:18)
[2016-11-24] MEDS: LACTOBACILLUS RHAMNOSUS GG 1 EACH CAP.SPRINK GT SCH ×2 (09:18→17:05)
[2016-11-24] MEDS: predniSONE 20 MG TABLET NG SCH (09:28)
--- NOTE | 2016-11-24 09:30 | NUR ---
MOLD YARD WORKER: sedation is off now, pt.is rest, unable to follow commands now, weak eyes contact+, was suctioned x3: large amount with little bloody, no SOB, SR, , RT are is room, updated with all above, SIMV mode started, continue monitoring
--- NOTE | 2016-11-24 10:30 | NUR ---
WIRELESS FIELD TECHNICIAN: pt.is on CPAP mode, tolerated well, SR, O2sat.WNL, rest, check ABG
--- NOTE | 2016-11-24 10:50 | NUR ---
FARMWORKERS: ABG: pH 7.34, pO2 76, pCO2 67, still large amount of secretion, pt.is awake, but with very weak slow reaction, ST 100-110, O2 sat. 91-92%, is in room, updated, said: resume AC mode and sedation
[2016-11-24] MEDS: CEFTRIAXONE 1 G in IV D5W 50 ML IV SCH (10:57)
[2016-11-24] MEDS ORDERED: AZITHROMYCIN 250 MG TABLET GT SCH (11:00)
--- NOTE | 2016-11-24 11:00 | NUR ---
pt placed back on ac mode per md order post abg
[2016-11-24 11:11] LABS: ABG BASE EXCESS 7.4 mmol/L; ABG OXYGEN SATURATION 93.5 % (92.0-98.5); ABG PCO2 67.3 mmHg (35.0-45.0); ABG PH 7.341 (7.350-7.450); ABG PO2 76.3 mmHg (75.0-100.0); COHb 0.7 % (0.5-1.5); MetHb 0.8 % (0.0-1.5); O2Hb 92.1 % (94.0-97.0)
[2016-11-24] MEDS: INSULIN REGULAR, HUMAN 100 UNIT/ML 3 ML VIAL SQ PRN ×2 (12:16→17:25)
[2016-11-24] MEDS ORDERED: IV SET PRIMARY PUMP SET 1 EA INFUS.SET MC ONE ×2 (17:11→19:34)
--- NOTE | 2016-11-24 18:49 | NUR ---
SLEEP TECH: pt.is sedated well with 15 mcg/kg/m Diprivan, reactive by touch, SR, SBP over 90, O2 sat. WNL, GTF residual WNL, skin is intact, free water given
[2016-11-24] MEDS ORDERED: NOREPINEPHRINE 4 MG/4 ML AMPUL IV ONE ×2 (19:31)
[2016-11-24] MEDS ORDERED: IV D5W 500 ML IV ONE (19:31)
[2016-11-24] MEDS ORDERED: IV NS 0.9% 250 ML IV ONE (19:34)
--- NOTE | 2016-11-24 19:52 | NUR ---
ASPHALT PLANT WORKER: SBP DROPPED TO 60/52, LEVOPHED DRIP STARTED PER PROTOCOL. PT WAS AGITATING, RESTLESS, DIPRIVAN TITRATING UP TO ACHIEVE SEDATION GOAL. KEEP MONITORING...
--- NOTE | 2016-11-24 20:06 | NUR ---
PATIENT REC'D ORALLY INTUBATED ON [facility] VENT WITH SETTINGS SET PER MD NATALYA PINEDA. VENT ALARMS CHECKED + AUDIBLE. CUFF PRESSURE CHECKED SAP BUSINESS INTELLIGENCE CONSULTANT. ETT SECURE .VENT PLUGGED INTO RED OUTLET. B/S DIM COARSE. SX'D WITH SM/MD WATSON SECRETIONS. NO DISTRESS AT THIS TIME. AMBU BAG AT [facility]. CONT CURRENT PLAN OF RESP CARE. Addendum: 11/24/16 at 2006 by CIARA LORA RT Amended: Links added.
[2016-11-24] MEDS: ENOXAPARIN SODIUM 40 MG/0.4 ML DISP.SYRIN SQ SCH (20:39)
[2016-11-24] MEDS: ATORVASTATIN 10 MG TABLET NG SCH (20:40)
[2016-11-24] MEDS ORDERED: PRAVASTATIN SODIUM 20 MG TABLET PO SCH (22:00)
--- NOTE | 2016-11-24 23:12 | NUR ---
PATIENT REC'D ORALLY INTUBATED ON [facility] VENT WITH SETTINGS SET PER MD NATALYA PINEDA. VENT ALARMS CHECKED + AUDIBLE. CUFF PRESSURE CHECKED LEASE ATTENDANT. ETT SECURE .VENT PLUGGED INTO RED OUTLET. B/S DIM COARSE. SX'D WITH SM/MD WATSON SECRETIONS. NO DISTRESS AT THIS TIME. AMBU BAG AT [facility]. CONT CURRENT PLAN OF RESP CARE. Addendum: 11/24/16 at 2313 by CIARA LORA RT Amended: Links added.
[2016-11-25] VITALS (58 sets, daily range): BP systolic 83–182; BP diastolic 53–96
[2016-11-25] MEDS: PROPOFOL 100 ML IV PRN ×4 (02:07→18:34)
[2016-11-25] MEDS: IPRATROPIUM NEB FS 0.5 MG/2.5 ML AMPUL.NEB NEB SCH ×6 (03:16→23:06)
[2016-11-25] MEDS: ALBUTEROL FS 2.5 MG/0.5 ML VIAL.NEB NEB SCH ×6 (03:16→23:06)
[2016-11-25] MEDS: BLOOD SUGAR DIAGNOSTIC 1 EACH STRIP IN SCH ×3 (05:42→18:09)
[2016-11-25] MEDS: ASPIRIN 81 MG TAB.CHEW NG SCH (08:30)
[2016-11-25] MEDS: LACTOBACILLUS RHAMNOSUS GG 1 EACH CAP.SPRINK GT SCH ×2 (08:30→17:30)
[2016-11-25] MEDS: PANTOPRAZOLE 40 MG VIAL IV SCH (08:30)
--- NOTE | 2016-11-25 10:45 | NUR ---
DAY CARE CENTER DIRECTOR- OBTAINED VERBAL ORDERS FROM DR. STERLING TO PUT PT ON SIMV MODE, RATE OF 4, PS 12. DIPRIVAN TURNED OFF. PT AWAKE. ABLE TO FOLLOW SIMPLE COMMANDS (SQUEEZE HANDS, WIGGLE TOES) AND NOD HEAD. MURAD RT AWARE OF VENT CHANGES. WILL CONTINUE TO MONITOR.
--- NOTE | 2016-11-25 11:00 | NUR ---
TECHNICIAN SUBMARINE CABLE EQUIPMENT- PT PLACED ON SIMV MODE BY RT. WILL CONTINUE TO MONITOR.
[2016-11-25] MEDS: INSULIN REGULAR, HUMAN 100 UNIT/ML 3 ML VIAL SQ PRN ×2 (11:31→17:31)
--- NOTE | 2016-11-25 11:50 | NUR ---
SPRING TIER- PT PLACED ON CPAP MODE BY RT. 1215- PT SATURATING 92-93% ON CPAP MODE. WILL CONTINUE TO MONITOR.
[2016-11-25] MEDS: predniSONE 20 MG TABLET NG SCH (12:27)
[2016-11-25 12:46] LABS: ABG BASE EXCESS 7.3 mmol/L; ABG OXYGEN SATURATION 94.4 % (92.0-98.5); ABG PCO2 65.8 mmHg (35.0-45.0); ABG PH 7.346 (7.350-7.450); ABG PO2 81.4 mmHg (75.0-100.0); AaDO2 128.1 mmHg; COHb 0.7 % (0.5-1.5); MetHb 0.8 % (0.0-1.5); SITE, ABG Right Radial; VENT MODE, BG CPAP 5 PS 10
--- NOTE | 2016-11-25 13:00 | NUR ---
ACCOUNT EXECUTIVE TRAINEE- ABG RESULTS GIVEN TO DR. STERLING. 1330- PT PLACED BACK ON AC MODE BY RT. SETTINGS FOLLOWS: AC 12, TV 550, FI02 40%, PEEP 5. DIPRIVAN RE-STARTED AT 35 MCG/MIN. WILL CONTINUE TO MONITOR.
[2016-11-25] MEDS ORDERED: IV SET PRIMARY PUMP SET 1 EA INFUS.SET MC ONE ×2 (13:52→21:18)
[2016-11-25] MEDS: GLYTROL 1,000 ML BAG NG PRN (13:58)
--- NOTE | 2016-11-25 14:17 | NUR ---
PT RECEIVED ORALLY INTUBATED W/ 7.5 ETT @ 23CM LIPLINE ON AC 12 550 +5 35% PER MD. VENT ALARMS CHECKED AND AUDIBLE, VENT PLUGGED INTO RED OUTLET. AMBUBAG AT BEDSIDE. ETT SECURE AND PATENT, BREATH SOUNDS EQUAL, DIMINISHED. PT SX'ED AND LAVAGED TO MODERATE AMOUNTS OF THICK PALE YELLOW SECRETIONS VIA ETT AND ORALLY. WEANING TO SIMV AND CPAP DONE, ABG DRAWN AND REPORTED TO MD AFTER WEANING TRIAL. PT PLACED BACK TO AC S/P FATIGUE AND DROP IN VENT VOLUMES. RN AND MD AWARE. PLAN IS CONTINUE W/ CURRENT CARE UNDER MD ORDERS AND MONITOR FOR CHANGES Addendum: 11/25/16 at 1419 by CELESTE WALTER RT Amended: Links added.
[2016-11-25] MEDS: ENOXAPARIN SODIUM 40 MG/0.4 ML DISP.SYRIN SQ SCH (21:45)
[2016-11-25] MEDS: ATORVASTATIN 10 MG TABLET NG SCH (21:46)
[2016-11-26] VITALS (43 sets, daily range): BP systolic 85–153; BP diastolic 47–92
[2016-11-26] MEDS: BLOOD SUGAR DIAGNOSTIC 1 EACH STRIP IN SCH ×4 (00:12→17:05)
[2016-11-26] MEDS ORDERED: IV NS 0.9% 250 ML IV ONE ×2 (01:26→21:18)
[2016-11-26] MEDS: IPRATROPIUM NEB FS 0.5 MG/2.5 ML AMPUL.NEB NEB SCH ×6 (02:06→23:32)
[2016-11-26] MEDS: ALBUTEROL FS 2.5 MG/0.5 ML VIAL.NEB NEB SCH ×6 (02:06→23:32)
--- NOTE | 2016-11-26 05:55 | NUR ---
AUDITOR/QUALITY PT AWAKE AND AGITATED DURING BED BATH. DIPRIVAN INCREASED TO 5 MCG/MIN WILL CONT TO MONITOR.
[2016-11-26] MEDS: PROPOFOL 100 ML IV PRN ×4 (06:42→23:22)
--- NOTE | 2016-11-26 07:09 | NUR ---
RT START NOTE; PT. 66 Y OLD FEMALE REC. ORALLY INTUBATED ETT # 7.5 @ 23 CM LIP LINE ON VENT WITH NOTED SETTING, ALARMS ARE SET AND FUNCTIONAL. TX'S STARTED AND CONTINUE FOR THERAPY MD GOODE, KAITLYNN INFANTE AT THE BEDSIDE. Addendum: 11/26/16 at 0709 by BERNA DUNN RT Amended: Links added.
[2016-11-26] MEDS: GLYTROL 1,000 ML BAG NG PRN ×2 (07:58→23:23)
[2016-11-26] MEDS: ASPIRIN 81 MG TAB.CHEW NG SCH (08:00)
[2016-11-26] MEDS: LACTOBACILLUS RHAMNOSUS GG 1 EACH CAP.SPRINK GT SCH ×2 (08:00→16:02)
[2016-11-26] MEDS: PANTOPRAZOLE 40 MG VIAL IV SCH (08:00)
[2016-11-26] MEDS: predniSONE 20 MG TABLET NG SCH (08:00)
--- NOTE | 2016-11-26 09:00 | NUR ---
RETAIL SERVICE REPRESENTATIVE- SEDATION VACATION DONE. DIPRIVAN TURNED OFF. PT OPENS EYES, ABLE TO FOLLOW SIMPLE COMMANDS. DIPRIVAN RE-STARTED AT 40 MCG/MIN. WILL CONTINUE TO MONITOR.
[2016-11-26 09:05] LABS: ABG BASE EXCESS 3.9 mmol/L; ABG OXYGEN SATURATION 96.5 % (92.0-98.5); ABG PCO2 47.3 mmHg (35.0-45.0); ABG PO2 95.7 mmHg (75.0-100.0); AaDO2 135.1 mmHg; COHb 0.4 % (0.5-1.5); MetHb 0.9 % (0.0-1.5); O2Hb 95.2 % (94.0-97.0); PEEP,BG 5 cm H2O; SITE, ABG Left Radial; VT, ABG 550 mL
[2016-11-26] MEDS ORDERED: IV SET PRIMARY PUMP SET 1 EA INFUS.SET MC ONE ×2 (10:52→21:19)
[2016-11-26] MEDS: INSULIN REGULAR, HUMAN 100 UNIT/ML 3 ML VIAL SQ PRN (11:09)
--- NOTE | 2016-11-26 17:15 | NUR ---
RECOVERER- MARIA FERNANDA CHARGE NURSE RELAYED ABG RESULTS TO DR. HILL. OBTAINED ORDERS TO PLACE PT BACK ON AC MODE AND RE-START DIPRIVAN. BERNA BLANCO MADE AWARE. DIPRIVAN RE-STARTED AT 40 MCG/MIN. WILL CONTINUE TO MONITOR.
[2016-11-26 17:17] LABS: ABG BASE EXCESS 2.4 mmol/L; ABG OXYGEN SATURATION 95.8 % (92.0-98.5); ABG PCO2 64.9 mmHg (35.0-45.0); ABG PH 7.291 (7.350-7.450); ABG PO2 98.6 mmHg (75.0-100.0); COHb 0.4 % (0.5-1.5); MetHb 0.9 % (0.0-1.5); O2Hb 94.6 % (94.0-97.0); SITE, ABG Left Radial; VENT MODE, BG CPAP 5 PS 8
--- NOTE | 2016-11-26 18:18 | NUR ---
RT END OF THE SHIFT REPORT, PT. 66 Y OLD FEMALE REMAIN ORALLY INTUBATED ETT #7.5 @23 CM LIP LINE ON AC MODE ON VENT WITH NOTED SETTINGS, ALARMS REMAIN FUNCTIONAL. SUPERVISOR CORDUROY CUTTING DONE HME CHANGED B/S BILATERALLY RHONCHI AND SUX'D AND LV'D FOR LARGE AMT. CLEAR/CALVIN SEC. @ [address] SERGIO GOODE AND ABG @ 1712 POST ABG RESULTS @ 1715 PLACED BACK ON AC PER DR. SERGIO GOODE PT. NATALYA WELL NO DISTRESS NOTED . T/O SHIFT AMBU BAG AT THE BEDSIDE. REPORT WILL PASS TO PM SHIFT. Addendum: 11/26/16 at 1821 by BERNA DUNN RT Amended: Links added.
--- NOTE | 2016-11-26 18:23 | NUR ---
RT END OF THE SHIFT REPORT, PT. 66 Y OLD FEMALE REMAIN ORALLY INTUBATED ETT #7.5 @23 CM LIP LINE ON AC MODE ON VENT WITH NOTED SETTINGS, ALARMS REMAIN FUNCTIONAL. GORE SEAMER DONE HME CHANGED B/S BILATERALLY RHONCHI AND SUX'D AND LV'D FOR LARGE AMT. CLEAR/CALVIN SEC. @ [address] SERGIO GOODE AND ABG @ 1712 POST ABG RESULTS @ 1715 PLACED BACK ON AC PER DR. SERGIO GOODE PT. NATALYA WELL NO DISTRESS NOTED . T/O SHIFT AMBU BAG AT THE BEDSIDE. REPORT WILL PASS TO PM SHIFT. Addendum: 11/26/16 at 1823 by BERNA DUNN RT Amended: Links added.
[2016-11-26] MEDS: ATORVASTATIN 10 MG TABLET NG SCH (21:07)
[2016-11-26] MEDS: ENOXAPARIN SODIUM 40 MG/0.4 ML DISP.SYRIN SQ SCH (21:07)
[2016-11-27] VITALS (36 sets, daily range): BP systolic 98–173; BP diastolic 47–97
[2016-11-27] MEDS: BLOOD SUGAR DIAGNOSTIC 1 EACH STRIP IN SCH ×5 (00:32→23:34)
[2016-11-27] MEDS: ALBUTEROL FS 2.5 MG/0.5 ML VIAL.NEB NEB SCH ×6 (02:56→23:51)
[2016-11-27] MEDS: IPRATROPIUM NEB FS 0.5 MG/2.5 ML AMPUL.NEB NEB SCH ×6 (02:56→23:51)
[2016-11-27] MEDS: PROPOFOL 100 ML IV PRN ×2 (04:28→09:25)
[2016-11-27] MEDS ORDERED: IV SET PRIMARY PUMP SET 1 EA INFUS.SET MC ONE (09:18)
[2016-11-27] MEDS: ASPIRIN 81 MG TAB.CHEW NG SCH (09:18)
[2016-11-27] MEDS: LACTOBACILLUS RHAMNOSUS GG 1 EACH CAP.SPRINK GT SCH ×2 (09:18→18:21)
[2016-11-27] MEDS: predniSONE 20 MG TABLET NG SCH (09:18)
[2016-11-27] MEDS: PANTOPRAZOLE 40 MG VIAL IV SCH (09:18)
[2016-11-27 10:46] LABS: ABG BASE EXCESS 3.8 mmol/L; ABG OXYGEN SATURATION 96.7 % (92.0-98.5); ABG PCO2 53.5 mmHg (35.0-45.0); ABG PH 7.369 (7.350-7.450); ABG PO2 98.9 mmHg (75.0-100.0); AaDO2 124.8 mmHg; COHb 0.4 % (0.5-1.5); O2Hb 95.3 % (94.0-97.0); SITE, ABG Right Radial; VENT MODE, BG AC 12 550 +5
[2016-11-27] MEDS: INSULIN REGULAR, HUMAN 100 UNIT/ML 3 ML VIAL SQ PRN (13:48)
--- NOTE | 2016-11-27 14:00 | NUR ---
FC NOTED TO BE LEAKING, NEW F/C #16 PLACED.
--- NOTE | 2016-11-27 15:24 | NUR ---
pt placed back on ac mode due to elevated wob. RR=35. hr 115. spo2 93% Addendum: 11/27/16 at 1531 by CARLIE HERNANDEZ RT Amended: Links added.
[2016-11-27] MEDS: GLYTROL 1,000 ML BAG NG PRN (18:22)
--- NOTE | 2016-11-27 20:30 | NUR ---
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 CURRENT VENT SETTINGS TOLERATING WELL. NO DISTRESS. SINUS RHYTHM ON MONITOR HEART RATE 110-105. DENIED PAIN. COMPLETE ASSESSMENT SEE ON FLOW SHEET. PICC ON RIGHT UPPER ARM, INTACT, TKO RUNNING. WEANING PLAN TOMORROW PER SHIATSU THERAPIST. SAFETY PRECAUTION PLACED. TURN AND REPOSITIONED FOR SKIN PROTECTION. ONGOING MONITORING...
[2016-11-27] MEDS: ATORVASTATIN 10 MG TABLET NG SCH (20:52)
[2016-11-27] MEDS: ENOXAPARIN SODIUM 40 MG/0.4 ML DISP.SYRIN SQ SCH (20:53)
[2016-11-28] VITALS (30 sets, daily range): BP systolic 97–173; BP diastolic 60–98
[2016-11-28] MEDS: IPRATROPIUM NEB FS 0.5 MG/2.5 ML AMPUL.NEB NEB SCH ×6 (02:49→23:24)
[2016-11-28] MEDS: ALBUTEROL FS 2.5 MG/0.5 ML VIAL.NEB NEB SCH ×6 (02:49→23:23)
[2016-11-28 04:30] LABS: BASOPHILS % (AUTO) 0.4 % (0.0-2.0); EOSINOPHILS # (AUTO) 0.3 /CMM (0.0-0.7); EOSINOPHILS % (AUTO) 2.6 % (0.0-6.0); HEMATOCRIT 36 % (33-45); HEMOGLOBIN 11.9 g/dL (11.5-14.8); LYMPHOCYTES # (AUTO) 1.6 /CMM (0.8-4.8); LYMPHOCYTES % (AUTO) 14.8 % (20.0-44.0); MEAN CORPUSCULAR HEMOGLOBIN 29 PG (26.0-33.0); MEAN CORPUSCULAR HGB CONC 33 g/dl (31.0-36.0); MEAN CORPUSCULAR VOLUME 89 fL (82-100); MONOCYTES # (AUTO) 1.4 /CMM (0.1-1.30); NEUTROPHILS # (AUTO) 7.5 /CMM (1.8-8.9); NEUTROPHILS % (AUTO) 69.2 % (43.0-81.0); PLATELET COUNT (AUTO) 325 /CMM (150-450); RDW COEFFICIENT OF VARIATION 14.3 (11.5-15.0); RED BLOOD CELL COUNT(AUTO) 4.07 MIL/uL (4.0-5.2); WHITE BLOOD COUNT (AUTO) 10.9 K/uL (4.3-11.0)
[2016-11-28 05:03] LABS: CALCIUM, SERUM 9.2 mg/dL (8.5-10.1); CREATININE 1.2 mg/dL (0.6-1.3); POTASSIUM 3.9 mmol/L (3.5-5.1)
[2016-11-28] MEDS ORDERED: IV NS 0.9% 250 ML IV ONE (05:10)
[2016-11-28] MEDS: BLOOD SUGAR DIAGNOSTIC 1 EACH STRIP IN SCH ×4 (05:17→23:27)
--- NOTE | 2016-11-28 07:43 | NUR ---
PT REC'D INTUBATED VIA 7.5 ETT AT 23CM AT THE LIP. PT IS AWAKE AND ALERT. VENT SETTINGS PER MD REQUEST. VENT ALARMS CHECKED AND AUDIBLE PER POLICY. SX'D MOD. AMT OF THICK BROWN SECRETIONS. PT IS RECEIVING Q6 HHN TX. AMBU BAG AT [facility]. VENT PLUGGED INTO RED OUTLET. NO RESP. DISTRESS NOTED AT THIS TIME. Addendum: 11/28/16 at 0745 by RONIT DAVIES RT Amended: Links added.
[2016-11-28] MEDS ORDERED: PANTOPRAZOLE 40 MG/PACK PACK GT SCH (09:00)
[2016-11-28] MEDS: LACTOBACILLUS RHAMNOSUS GG 1 EACH CAP.SPRINK GT SCH ×2 (09:27→17:50)
[2016-11-28] MEDS: predniSONE 20 MG TABLET NG SCH (09:27)
[2016-11-28] MEDS: ASPIRIN 81 MG TAB.CHEW NG SCH (09:28)
[2016-11-28 10:56] LABS: ABG BASE EXCESS 2.8 mmol/L; ABG OXYGEN SATURATION 97.3 % (92.0-98.5); ABG PCO2 49.1 mmHg (35.0-45.0); ABG PH 7.384 (7.350-7.450); ABG PO2 108.1 mmHg (75.0-100.0); AaDO2 84.4 mmHg; COHb 0.6 % (0.5-1.5); MetHb 0.7 % (0.0-1.5); PEEP,BG 5 cm H2O; SITE, ABG Right Radial; VENT MODE, BG CPAP
--- NOTE | 2016-11-28 11:13 | NUR ---
PT EXTUBATED SUCCESSFULLY WITH NO COMPLICATIONS. PT PLACED ON 6LPM NASAL CANNULA. NO STRIDOR PRESENT. WILL CONTINUE TO MONITOR PT. DR. JASSO AND YESENIA ORTEGA AWARE.
--- NOTE | 2016-11-28 11:30 | NUR ---
PT EXTUBATED BY RT. RONIT NOW ON NC AT 4L. VSS, DENIED SOB. Addendum: 11/28/16 at 1241 by YESENIA SMITH RN CORRECTION PT ON 6L NC WITH HUMIDIFIER SAT 96-98%
[2016-11-28] MEDS: INSULIN REGULAR, HUMAN 100 UNIT/ML 3 ML VIAL SQ PRN ×2 (13:04→17:52)
[2016-11-28] MEDS ORDERED: IV SET PRIMARY PUMP SET 1 EA INFUS.SET MC ONE (18:49)
[2016-11-28] MEDS: IV D5/0.45 NACL 1,000 ML IV PRN (19:00)
--- NOTE | 2016-11-28 19:05 | NUR ---
extubated and tolerating 4L/NC.Spoke with Josephine Galeana- patient has no more criteria for Galeana and is aware. clinicals faxed to admission- Derrick Brand Addendum: 11/28/16 at 1906 by MANUEL ESQUIVEL RN Amended: Links added.
--- NOTE | 2016-11-28 20:00 | NUR ---
RECEIVED PATIENT AWAKE ALERT AND ORIENTED X 2-3.FOLLOWS COMMANDS.VS STABLE. HEMODYNAMICALLY STABLE.RESPIRATION EVEN AND UNLABORED WITH O2 6L/MIN NC.WELL TOLERATED.SPO2 99%.NPO AWAITING SWALLOW EVAL IN AM.DENIES PAIN.FC DRAINING WELL.TURNED AND REPOSITIONED.
[2016-11-28] MEDS: ENOXAPARIN SODIUM 40 MG/0.4 ML DISP.SYRIN SQ SCH (21:08)
[2016-11-28] MEDS: ATORVASTATIN 10 MG TABLET NG SCH ×2 (21:36→21:37)
--- NOTE | 2016-11-28 22:49 | NUR ---
extubated and tolerating 4L/NC.Spoke with Josephine Galeana- patient has no more criteria for Galeana and is aware. clinicals faxed to admission- [facility] [phone] Addendum: 11/28/16 at 2250 by MANUEL ESQUIVEL RN Amended: Links added.
[2016-11-29] VITALS (24 sets, daily range): BP systolic 113–174; BP diastolic 49–108
[2016-11-29] MEDS: ALBUTEROL FS 2.5 MG/0.5 ML VIAL.NEB NEB SCH ×6 (04:36→23:23)
[2016-11-29] MEDS: IPRATROPIUM NEB FS 0.5 MG/2.5 ML AMPUL.NEB NEB SCH ×6 (04:36→23:23)
[2016-11-29] MEDS: BLOOD SUGAR DIAGNOSTIC 1 EACH STRIP IN SCH ×3 (06:12→17:17)
--- NOTE | 2016-11-29 06:38 | NUR ---
PATIENT RESTING.VS STABLE.SR .AM CARE DONE.TURNED AND REPOSITIONED.HEMODYNAMICALLY STABLE.NO SIGNIFICANT CHANGE NOTED DURING THE SHIFT.
--- NOTE | 2016-11-29 07:15 | NUR ---
CHEMISTRY QUALITY CONTROL TECHNICIAN NOTES RECEIVED PATIENT AOX2-3 NOT IN ACUTE DISTRESS , DENIES SOB AND DISCOMFORT AT THIS TIME WITH SPO2 OF 95 % VIA 6LPM NC , SR 75 ON BEDSIDE MONITOR , FC DRAINING WELL VIA GRAVITY WITH CLEAR YELLOW URINE , KIET PICC LINE PATENT AND INTACT WITH D5 1/2 NS @ 75ML/HR INFUSING WELL , ALL NEEDS ATTENDED , BED ON LOW AND LOCKED POSITION , SIDE RAILS X2, CALL LIGHT WITHIN REACH , HOB @ 35 , SIDE RAILS X3, WILL CONTINUE TO MONITOR
--- NOTE | 2016-11-29 07:30 | NUR ---
DOLL WIG MAKER NOTES O2 TITRATED DOWN FROM 6LPM TO 2LPM WITH SPO2 OF 100% TOLERATING WELL WITH NO SIGNS OF DISTRESS .
[2016-11-29] MEDS ORDERED: PANTOPRAZOLE 40 MG TABLET.DR PO ONE (07:56)
[2016-11-29] MEDS: IV D5/0.45 NACL 1,000 ML IV PRN (08:01)
[2016-11-29] MEDS: LACTOBACILLUS RHAMNOSUS GG 1 EACH CAP.SPRINK GT SCH ×2 (08:01→17:16)
[2016-11-29] MEDS: ASPIRIN 81 MG TAB.CHEW NG SCH (08:01)
[2016-11-29] MEDS: PANTOPRAZOLE 40 MG TABLET.DR PO SCH (08:01)
[2016-11-29] MEDS: predniSONE 20 MG TABLET NG SCH (08:01)
--- NOTE | 2016-11-29 08:11 | NUR ---
ENGLISH ADJUNCT FACULTY NOTES PATIENT TRANSFERED TO ICU OVERFLOW ROOM 106 VIA ACLS PROTOCOL , PT STABLE AT THIS TIME , NO LISA NOTED , REPORT GIVEN TO GRUPO FOR CONTINUITY OF CARE
[2016-11-29] MEDS ORDERED: PANTOPRAZOLE 40 MG/PACK PACK GT SCH (09:00)
[2016-11-29] MEDS: INSULIN REGULAR, HUMAN 100 UNIT/ML 3 ML VIAL SQ PRN (12:08)
--- NOTE | 2016-11-29 12:30 | NUR ---
ICU/RN: PT TOLERATED PO DIET. ASPIRATION PRECAUTIONS IN PLACE. EATS 35% OF MEALS.
--- NOTE | 2016-11-29 15:00 | NUR ---
ICU/RN: BED BATH, WOUND CARE RENDERED. BILAT HEELS OFFLOADED.
--- NOTE | 2016-11-29 18:31 | NUR ---
ICU/RN: DR MANPREET GARCIA; UPDATED ON PT STATUS. PER MD PT IS STABLE TO DOWNGRADE PT TO RAFFI.
[2016-11-29] MEDS ORDERED: IV NS 0.9% 250 ML IV ONE (20:07)
[2016-11-29] MEDS ORDERED: IV SET PRIMARY PUMP SET 1 EA INFUS.SET MC ONE (20:07)
[2016-11-29] MEDS: ENOXAPARIN SODIUM 40 MG/0.4 ML DISP.SYRIN SQ SCH (21:54)
[2016-11-29] MEDS: ATORVASTATIN 10 MG TABLET NG SCH (21:55)
[2016-11-30] VITALS: BP_SYST 187; BP_DIAS 87; BP_DIAS 96
--- NOTE | 2016-11-30 00:16 | NUR ---
SWIMMING POOL INSTALLER AND SERVICER DF PT ACCU CHECK OF 79 PT PROVIDED HS SNACK. PT BP OF 187/96 [facility] ORDER OF DR CASE TREAT HYPERTENSION ABOVE 220/120. PT ASYMPTOMATIC WILL CONTINUE TO MONITOR.
[2016-11-30] MEDS: ALBUTEROL FS 2.5 MG/0.5 ML VIAL.NEB NEB SCH ×6 (03:30→23:10)
[2016-11-30] MEDS: IPRATROPIUM NEB FS 0.5 MG/2.5 ML AMPUL.NEB NEB SCH ×6 (03:30→23:10)
[2016-11-30 04:00] VITALS: BP 173/89
--- NOTE | 2016-11-30 04:25 | NUR ---
VIROLOGIST DF. PT BP OF 173/87 PER [facility] ORDER OF DR CASE TREAT HYPERTENSION ABOVE 220/120. PT ASYMPTOMATIC WILL CONTINUE TO MONITOR.NO INTERVENTIONS AT THIS TIME PER MD ORDERS
[2016-11-30] MEDS: BLOOD SUGAR DIAGNOSTIC 1 EACH STRIP IN SCH ×5 (06:00→23:26)
[2016-11-30 06:43] LABS: CALCIUM, SERUM 9.3 mg/dL (8.5-10.1); CREATININE 1.1 mg/dL (0.6-1.3); POTASSIUM 3.5 mmol/L (3.5-5.1)
[2016-11-30 06:46] LABS: BASOPHILS % (AUTO) 0.4 % (0.0-2.0); EOSINOPHILS # (AUTO) 0.3 /CMM (0.0-0.7); EOSINOPHILS % (AUTO) 2.6 % (0.0-6.0); HEMATOCRIT 40 % (33-45); HEMOGLOBIN 13.1 g/dL (11.5-14.8); LYMPHOCYTES # (AUTO) 1.6 /CMM (0.8-4.8); LYMPHOCYTES % (AUTO) 14.3 % (20.0-44.0); MEAN CORPUSCULAR HEMOGLOBIN 29 PG (26.0-33.0); MEAN CORPUSCULAR HGB CONC 33 g/dl (31.0-36.0); MEAN CORPUSCULAR VOLUME 88 fL (82-100); MONOCYTES # (AUTO) 1.4 /CMM (0.1-1.30); MONOCYTES % (AUTO) 12.4 % (2.0-12.0); NEUTROPHILS # (AUTO) 8.1 /CMM (1.8-8.9); NEUTROPHILS % (AUTO) 70.3 % (43.0-81.0); PLATELET COUNT (AUTO) 379 /CMM (150-450); RDW COEFFICIENT OF VARIATION 13.9 (11.5-15.0); RED BLOOD CELL COUNT(AUTO) 4.52 MIL/uL (4.0-5.2); WHITE BLOOD COUNT (AUTO) 11.6 K/uL (4.3-11.0)
--- NOTE | 2016-11-30 07:15 | NUR ---
RN INITIAL NOTES: REC'D PT ASLEEP ON BED, NOT IN ANY FORM OF DISTRESS, A/O X3, DENIES ANY PAIN AND DISCOMFORT. ON TELEMONITOR, ST 110. HAS KIET PICC LINE, FLUSHED, PATENT & INTACT W/ NO S/SX OF INFECTION/ INFILTRATION NOTED. HAS PATENT & INTACT FC DRAINING TO CLEAR YELLOW URINE OUTPUT. PROVIDED COMFORT & SAFETY MEASURES. CALL LIGHT PLACED W/IN REACH. BED KEPT LOW & IN LOCKED POS. WILL CONTINUE TO MONITOR.
[2016-11-30 08:00] VITALS: BP 149/89
[2016-11-30] MEDS: ASPIRIN 81 MG TAB.CHEW NG SCH (08:19)
[2016-11-30] MEDS: PANTOPRAZOLE 40 MG TABLET.DR PO SCH (08:19)
[2016-11-30] MEDS: predniSONE 20 MG TABLET NG SCH (08:19)
[2016-11-30] MEDS: LACTOBACILLUS RHAMNOSUS GG 1 EACH CAP.SPRINK GT SCH (08:19)
[2016-11-30] MEDS: INSULIN REGULAR, HUMAN 100 UNIT/ML 3 ML VIAL SQ PRN ×2 (11:57→17:36)
[2016-11-30 12:00] VITALS: BP 135/84
[2016-11-30 16:00] VITALS: BP 156/84
--- NOTE | 2016-11-30 18:52 | NUR ---
RN CLOSING NOTES: NO ACUTE CHANGES NOTED W/IN SHIFT. ON TELEMONITOR, STILL ST. PT TOLERATED O2/NC AT 4LPM, NO SOB. KIET PICC LINE, KEPT PATENT & INTACT W/ NO S/SX OF INFECTION/ INFILTRATION NOTED. KEPT WELL RESTED. CALL LIGHT PLACED W/IN REACH. BED KEPT LOW & IN LOCKED POS. WILL ENDORSE TO PM RN FOR LISA.
[2016-11-30 20:00] VITALS: BP 130/70
--- NOTE | 2016-11-30 20:00 | NUR ---
RN NOTES PX RECEIVED AWAKE, ALERT, ORIENTED X 3, ALTHOUGH SLOW TO RESPOND BUT TALKS IN 1-3 WORD SENTENCES; DENIED PAIN, SOB, N/V; ON NC; WITH DIAPER ON; IV ACCESS FLUSHED, PATENT, INTACT; DISCUSSED PLAN OF CARE, INCLUDING FREQUENT TURNING.
[2016-11-30] MEDS: ENOXAPARIN SODIUM 40 MG/0.4 ML DISP.SYRIN SQ SCH (21:04)
[2016-11-30] MEDS: ATORVASTATIN 10 MG TABLET NG SCH (21:04)
[2016-11-30] MEDS: MIRTAZAPINE 15 MG TABLET PO SCH (21:04)
[2016-12-01] VITALS: BP 119/65
--- NOTE | 2016-12-01 00:18 | NUR ---
RN NOTES CONDITION AND NEURO STATUS UCHANGED, AROUSABLE WITH TOUCH, FOLLOWS COMMAND. DENIED SOB, N/V, PAIN.
[2016-12-01] MEDS: ALBUTEROL FS 2.5 MG/0.5 ML VIAL.NEB NEB SCH ×6 (03:11→23:37)
[2016-12-01] MEDS: IPRATROPIUM NEB FS 0.5 MG/2.5 ML AMPUL.NEB NEB SCH ×6 (03:11→23:37)
[2016-12-01 04:00] VITALS: BP 136/72
[2016-12-01] MEDS: BLOOD SUGAR DIAGNOSTIC 1 EACH STRIP IN SCH ×4 (05:16→23:13)
--- NOTE | 2016-12-01 06:32 | NUR ---
RN NOTES EARLY AM CARE RENDERED AT 4;30 AM, CHANGED GOWN AND BED LINENS, CHANGED DIAPER, WITH BM, PERICARE GIVEN, NO SKIN BREAKDOWN, PROCEDURE TOLERATED. CURRENTLY PX IS ASLEEP BUT EASILY AROUSABLE, ORIENTED AND ALERT, DENIED PAIN, SOB, N/V; ST ON MONITOR, WILL ENDORSE TO NEXT RN.
[2016-12-01] MEDS: PANTOPRAZOLE 40 MG TABLET.DR PO SCH (07:35)
[2016-12-01 08:00] VITALS: BP 154/91
[2016-12-01] MEDS: ASPIRIN 81 MG TAB.CHEW NG SCH (08:54)
[2016-12-01] MEDS: predniSONE 20 MG TABLET NG SCH (08:54)
[2016-12-01 09:32] LABS: ABG BASE EXCESS 2.7 mmol/L; ABG OXYGEN SATURATION 94.1 % (92.0-98.5); ABG PCO2 55.1 mmHg (35.0-45.0); ABG PH 7.348 (7.350-7.450); ABG PO2 76.6 mmHg (75.0-100.0); AaDO2 87.1 mmHg; COHb 1.2 % (0.5-1.5); MetHb 0.6 % (0.0-1.5); O2Hb 92.4 % (94.0-97.0); SITE, ABG Right Radial; VENT MODE, BG nasal cannula
--- NOTE | 2016-12-01 11:09 | NUR ---
RN RAFFI PATIENT IS MORE ALERT, LESS CONGESTION HEARD UPON AUSCULTATION SEEN AND EXAMINED PATIENT MOVED TO TELEMETRY POSSIBLE DISCHARGED TOMORROW
[2016-12-01 12:00] VITALS: BP 114/75
[2016-12-01 16:00] VITALS: BP 105/56
--- NOTE | 2016-12-01 19:50 | NUR ---
RN INITIAL NOTE; PT ON THE BED ASLEEP WITHOUT ANY DISTRESS . PT IS A/O X 3 , BREATHING EVEN AND UNLABORED ON NC 2 LPM . KIET PICC LINE INTACT AND PATENT. TELE MONITOR SHOWING SR-ST, HR 90-100 BPM . DENIED ANY PAIN AT THIS TIME . INCONTINENT TO BOWEL/BLADDER . BED IN THE LOWEST/LOCKED POSITION . SAFETY MEASURES APPLIED. WILL CONTINUE TO MONITOR .
[2016-12-01 20:00] VITALS: BP 124/75
[2016-12-01] MEDS: MIRTAZAPINE 15 MG TABLET PO SCH (21:16)
[2016-12-01] MEDS: ATORVASTATIN 10 MG TABLET NG SCH (21:16)
[2016-12-01] MEDS: ENOXAPARIN SODIUM 40 MG/0.4 ML DISP.SYRIN SQ SCH (21:18)
[2016-12-01] MEDS ORDERED: IV NS 0.9% 250 ML IV ONE (21:21)
[2016-12-01] MEDS: INSULIN REGULAR, HUMAN 100 UNIT/ML 3 ML VIAL SQ PRN (23:16)
[2016-12-02] VITALS (7 sets, daily range): BP systolic 119–155; BP diastolic 68–92
[2016-12-02] MEDS: ALBUTEROL FS 2.5 MG/0.5 ML VIAL.NEB NEB SCH ×6 (03:16→22:52)
[2016-12-02] MEDS: IPRATROPIUM NEB FS 0.5 MG/2.5 ML AMPUL.NEB NEB SCH ×6 (03:16→22:52)
[2016-12-02] MEDS: BLOOD SUGAR DIAGNOSTIC 1 EACH STRIP IN SCH ×4 (06:05→23:14)
--- NOTE | 2016-12-02 06:59 | NUR ---
RN EOS NOTE; PT REMAINED STABLE DURING THE SHIFT, NO ANY DISTRESS NOTED . KIET PICC LINE REMAINED INTACT AND PATENT . V/S AND BS WNL. ALL NEEDS ATTENDED PROMPTLY. KEPT CLEAN AND DRY . WILL ENDORSE TO NEXT SHIFT RN FOR CONTINUITY OF CARE.
[2016-12-02 07:02] LABS: BASOPHILS # (AUTO) 0.1 /CMM (0.0-0.2); BASOPHILS % (AUTO) 0.7 % (0.0-2.0); EOSINOPHILS # (AUTO) 0.3 /CMM (0.0-0.7); EOSINOPHILS % (AUTO) 3.2 % (0.0-6.0); HEMATOCRIT 39 % (33-45); HEMOGLOBIN 12.6 g/dL (11.5-14.8); LYMPHOCYTES # (AUTO) 2.1 /CMM (0.8-4.8); MEAN CORPUSCULAR HEMOGLOBIN 29 PG (26.0-33.0); MEAN CORPUSCULAR HGB CONC 33 g/dl (31.0-36.0); MEAN CORPUSCULAR VOLUME 89 fL (82-100); MONOCYTES # (AUTO) 0.9 /CMM (0.1-1.30); MONOCYTES % (AUTO) 9.7 % (2.0-12.0); NEUTROPHILS # (AUTO) 6.1 /CMM (1.8-8.9); NEUTROPHILS % (AUTO) 64.4 % (43.0-81.0); PLATELET COUNT (AUTO) 400 /CMM (150-450); RDW COEFFICIENT OF VARIATION 14.7 (11.5-15.0); RED BLOOD CELL COUNT(AUTO) 4.33 MIL/uL (4.0-5.2); WHITE BLOOD COUNT (AUTO) 9.4 K/uL (4.3-11.0)
--- NOTE | 2016-12-02 07:10 | NUR ---
MANAGER PHOTO NOTES RECEIVED PATIENT IN BED, AWAKE. A/O X3, ON OXYGEN AT 2L/MIN VIA NC, NO SOB NOTED, HOB ELEVATED. KIET PICC LINE PATENT AND INTACT, FLUSHES WELL. NO C/O PAIN AT THIS TIME. CALL LIGHT WITHIN REACH. WILL CONT TO MONITOR.
[2016-12-02 07:32] LABS: BILIRUBIN,TOTAL 0.3 mg/dL (0.2-1.0); CALCIUM, SERUM 8.9 mg/dL (8.5-10.1); CREATININE 1.2 mg/dL (0.6-1.3); POTASSIUM 3.5 mmol/L (3.5-5.1)
[2016-12-02 07:33] LABS: ALBUMIN 2.6 g/dL (3.4-5.0); TOTAL PROTEIN, SERUM 6.6 g/dL (6.4-8.2)
--- NOTE | 2016-12-02 08:22 | NUR ---
PER PATIENT SHE'S EATING VEGETARIAN ONLY AND NO MEAT. UPDATED DIET AND INFORMED DIETARY.
[2016-12-02] MEDS: ASPIRIN 81 MG TAB.CHEW NG SCH (08:52)
[2016-12-02] MEDS: PANTOPRAZOLE 40 MG TABLET.DR PO SCH (08:52)
[2016-12-02] MEDS: predniSONE 20 MG TABLET NG SCH (08:52)
[2016-12-02] MEDS: METOPROLOL TARTRATE 25 MG TABLET PO SCH ×2 (12:28→21:07)
[2016-12-02] MEDS: INSULIN REGULAR, HUMAN 100 UNIT/ML 3 ML VIAL SQ PRN ×2 (13:04→17:03)
--- NOTE | 2016-12-02 18:15 | NUR ---
CLINICAL INFORMATICS PHYSICIAN CLOSING PATIENT IN BED, NOT IN DISTRESS. NO S/S OF HYPO/HYPERGLYCEMIA. BREATHING TREATMENT GIVEN BY RT, NO SOB NOTED. GOOD APPETITE, ATE 100% OF HER MEALS. TURN AND REPOSITION, MAINTAIN HOB ELEVATED. MADE COMFORTABLE IN BED. WILL ENDORSE TO DOCUMENT IMAGING MANAGER RN FOR CONTINUITY OF CARE.
--- NOTE | 2016-12-02 19:50 | NUR ---
tele/rn opening notes patient in bed, awake, alert x3. tele reading sr 85. require assistance and incontinent, will continue to provide care and keep comfortable. verbalized no discomfort at this time. will monitor.
[2016-12-02] MEDS: MIRTAZAPINE 15 MG TABLET PO SCH (21:06)
[2016-12-02] MEDS: ATORVASTATIN 10 MG TABLET NG SCH (21:07)
[2016-12-02] MEDS: ENOXAPARIN SODIUM 40 MG/0.4 ML DISP.SYRIN SQ SCH (21:10)
[2016-12-03] VITALS (7 sets, daily range): BP systolic 112–156; BP diastolic 70–94
[2016-12-03] MEDS: IPRATROPIUM NEB FS 0.5 MG/2.5 ML AMPUL.NEB NEB SCH ×6 (03:15→23:39)
[2016-12-03] MEDS: ALBUTEROL FS 2.5 MG/0.5 ML VIAL.NEB NEB SCH ×6 (03:15→23:39)
--- NOTE | 2016-12-03 03:28 | NUR ---
tele/rn notes patient observe w/ congestion and discomfort, have refused to have respiratory care but was able toinform the importance and verbalized understanding.
[2016-12-03] MEDS: BLOOD SUGAR DIAGNOSTIC 1 EACH STRIP IN SCH ×4 (05:08→23:43)
--- NOTE | 2016-12-03 06:14 | NUR ---
tele/rn closing notes patient in bed,asleep but arousable. can follow simple commands. require repositioning for comfort. no observed grimace and guarding. call lights within reach. will endorse to am regarding continuity of care..
--- NOTE | 2016-12-03 07:00 | NUR ---
RN NOTES PT RECEIVED ON BED, A/Ox2-3, RESPIRATION EVEN AND UNLABORED, ON O2 2-3L N/C , NO SOB NOTED, ON TELE SR IN 80'S , R UPPER ARM PICC LINE CDI, NO COMPLICATION NOTED AT THE SITE, SR UPx3, CALL LIGHT WITHIN EASY REACH, CONTINUE TO MONITOR PT CLOSELY AND NOTIFY MD FOR ANY SIGNIFICANT CHANGES,
[2016-12-03] MEDS: ASPIRIN 81 MG TAB.CHEW NG SCH (08:13)
[2016-12-03] MEDS: METOPROLOL TARTRATE 25 MG TABLET PO SCH ×2 (08:15→20:16)
[2016-12-03] MEDS: PANTOPRAZOLE 40 MG TABLET.DR PO SCH (08:15)
[2016-12-03] MEDS: predniSONE 20 MG TABLET NG SCH (08:16)
--- NOTE | 2016-12-03 12:20 | NUR ---
RN NOTES PT 02 SAT 87-89% WITH PRODUCTIVE COUGH. NT SUCTIONING DONE BY RT, PT PLACED ON SIMPLE MASK 10L. 02 SAT WENT UP TO 94-95%. CONTINUE TO KEEP PT ON SIMPLE MASK AND MONITOR.
[2016-12-03] MEDS: INSULIN REGULAR, HUMAN 100 UNIT/ML 3 ML VIAL SQ PRN ×2 (12:31→17:03)
--- NOTE | 2016-12-03 14:16 | NUR ---
RN NOTES O2 SAT 97% ON SIMPLE MASK , PT STABLE , NO SOB NOTED ,
--- NOTE | 2016-12-03 14:30 | NUR ---
RN NOTES PT PLACED BACK ON NASAL CANNULA 3-4L , O2 SAT 88-89% SOB NOTED. PT IS A MOUTH BREATHER, ENCOURAGED DEEP BREATHING. PT PLACED BACK ON SIMPLE MASK AT 8L, O2 SAT WENT UP TO 96-97%
--- NOTE | 2016-12-03 18:21 | NUR ---
RN NOTES PT STABLE , STILL ON 8L FACE MASK O2 SAT 96% , MEDICATED PER MD ORDER , SR UP x3, CALL LIGHT WITHIN EASY REACH , NO SIGNIFICANT CHANGES AT THIS TIME
[2016-12-03] MEDS: HYDROCODONE/APAP 5/325MG 1 EACH TABLET PO PRN (19:08)
[2016-12-03] MEDS: ENOXAPARIN SODIUM 40 MG/0.4 ML DISP.SYRIN SQ SCH (20:15)
[2016-12-03] MEDS: ATORVASTATIN 10 MG TABLET NG SCH (21:45)
[2016-12-03] MEDS: MIRTAZAPINE 15 MG TABLET PO SCH (21:45)
--- NOTE | 2016-12-03 22:19 | NUR ---
DIE TROUBLE SHOOTER INITIAL NOTE PT RECEIVED IN ST WITH A RATE OF 122 IN BED IN COMFORTABLE POSITION. PT IS A/O X3. DURING PREVIOUS SHIFT SHE DESATURATED ON 6L 02 TO 88% SO A SIMPLE MASK WAS PLACED AT 8L IN WHICH HER SATURATION LEVELS INCREASED INTO THE MID 90'S. NORCO WAS GIVEN AROUND 1900. PT HAS KIET PICC LINE THAT IS RUNNING TKO THROUGH CURRENTLY. SHE IS ON A MECHANICAL SOFT DIET. SAFETY AND COMFORT MEASURES ENSURED AND WILL CONTINUE TO MONITOR FOR ANY CHANGES.
[2016-12-04] VITALS: BP 121/87
[2016-12-04] MEDS ORDERED: IV SET PRIMARY PUMP SET 1 EA INFUS.SET MC ONE (01:27)
[2016-12-04] MEDS ORDERED: IV NS 0.9% 250 ML IV ONE (01:28)
[2016-12-04] MEDS: IPRATROPIUM NEB FS 0.5 MG/2.5 ML AMPUL.NEB NEB SCH ×6 (03:39→23:47)
[2016-12-04] MEDS: ALBUTEROL FS 2.5 MG/0.5 ML VIAL.NEB NEB SCH ×6 (03:39→23:47)
--- NOTE | 2016-12-04 03:51 | NUR ---
RN NOTE PT HR/02 SATURATION HAS BEEN STABLE SINCE START OF SHIFT WHEN LOPRESSOR WAS GIVEN WELL BREATHING TREATMENTS THROUGHOUT SHIFT. 02 TITRATED FROM 8L ON SIMPLE MASK DOWN TO 2L VIA NC DUE TO NORMALIZATION OF 02 SATURATION FOR COPD PATIENT.
[2016-12-04 04:00] VITALS: BP 122/72
[2016-12-04] MEDS: BLOOD SUGAR DIAGNOSTIC 1 EACH STRIP IN SCH ×3 (05:26→17:21)
--- NOTE | 2016-12-04 06:36 | NUR ---
FLEET MANAGER INITIAL NOTE PT REMAINS IN NO ACUTE DISTRESS. TACHYCARDIA WAS CEASED DURING THE SHIFT. ON 2L 02 VIA NC WITH 02 SATURATION 96% WITH NO SOB. PATIENT TOLERATED MEDICATIONS ORDERED. COMFORT/SAFETY MEASURES ENSURED AND WILL CONTINUE TO MONITOR FOR ANY CHANGES.
--- NOTE | 2016-12-04 07:40 | NUR ---
Tele/RN - Notes O2 saturation on O2 2lpm 88%, RT Sanchez at bedside for breathing treatment. O2 titrated up by RT to 4lpm.
[2016-12-04 08:00] VITALS: BP 98/68
[2016-12-04] MEDS: METOPROLOL TARTRATE 25 MG TABLET PO SCH ×2 (08:47→21:40)
[2016-12-04] MEDS: ASPIRIN 81 MG TAB.CHEW NG SCH (08:47)
[2016-12-04] MEDS: predniSONE 20 MG TABLET NG SCH (08:47)
[2016-12-04] MEDS: PANTOPRAZOLE 40 MG TABLET.DR PO SCH (08:47)
[2016-12-04] MEDS: BENAZEPRIL HCL 10 MG TABLET PO SCH (08:48)
[2016-12-04] MEDS ORDERED: IV NS 0.9% 250 ML IV PRN (09:00)
[2016-12-04] MEDS: INSULIN REGULAR, HUMAN 100 UNIT/ML 3 ML VIAL SQ PRN (12:00)
[2016-12-04 13:23] LABS: ABG BASE EXCESS 5.3 mmol/L; ABG OXYGEN SATURATION 95.7 % (92.0-98.5); ABG PCO2 68.3 mmHg (35.0-45.0); ABG PH 7.311 (7.350-7.450); AaDO2 93.5 mmHg; MetHb 0.9 % (0.0-1.5); O2Hb 93.9 % (94.0-97.0); SITE, ABG Left Radial
--- NOTE | 2016-12-04 13:30 | NUR ---
MS/RN - Notes ABG results relayed to Dr Mcfarland.
[2016-12-04 16:00] VITALS: BP 119/62
--- NOTE | 2016-12-04 16:30 | NUR ---
MS/RN - Notes Dr Rodriguez notified regarding pt's ABG notes, as requested by Dr Mcfarland. Pt not in any respiratory distress. Pt alert and oriented. No BiPap necessary at this time. Per Dr Rodriguez, follow up with ABG in the AM. Will carry out.
[2016-12-04] MEDS ORDERED: ALBUTEROL FS 2.5 MG/0.5 ML VIAL.NEB ONE ×2 (19:28→23:30)
[2016-12-04] MEDS ORDERED: IPRATROPIUM NEB FS 0.5 MG/2.5 ML AMPUL.NEB ONE ×2 (19:29→23:30)
--- NOTE | 2016-12-04 19:30 | NUR ---
MS RN INITIAL NOTES RECEIVED PATIENT AWAKE A/OX2 ABLE TO MAKE NEEDS KNOWN. DENIES PAIN OR DISCOMFORT. DENIES SOB. RESPIRATIONS EVEN AND UNLABORED. SKIN WARM AND DRY TO TOUCH. WITH 4LPMO2 VIA NC. WITH KIET PICC LINE PATENT AND INTACT, TKO. HOB ELEVATED. SIDE RAILS UP AND LOCKED. BED KEPT AT LOWEST POSITION. CALL LIGHT KEPT WITHIN EASY REACH. WILL CONTINUE TO MONITOR.
[2016-12-04 20:00] VITALS: BP 173/88
[2016-12-04] MEDS: ENOXAPARIN SODIUM 40 MG/0.4 ML DISP.SYRIN SQ SCH (21:40)
[2016-12-04] MEDS: MIRTAZAPINE 15 MG TABLET PO SCH (21:40)
[2016-12-04] MEDS: ATORVASTATIN 10 MG TABLET NG SCH (21:40)
[2016-12-05] MEDS: BLOOD SUGAR DIAGNOSTIC 1 EACH STRIP IN SCH ×3 (00:17→11:54)
[2016-12-05] MEDS ORDERED: ALBUTEROL FS 2.5 MG/0.5 ML VIAL.NEB ONE ×3 (02:39→11:10)
[2016-12-05] MEDS ORDERED: IPRATROPIUM NEB FS 0.5 MG/2.5 ML AMPUL.NEB ONE ×3 (02:40→11:10)
[2016-12-05] MEDS: IPRATROPIUM NEB FS 0.5 MG/2.5 ML AMPUL.NEB NEB SCH ×4 (02:43→15:30)
[2016-12-05] MEDS: ALBUTEROL FS 2.5 MG/0.5 ML VIAL.NEB NEB SCH ×2 (02:43→07:58)
[2016-12-05 04:00] VITALS: BP 134/75
--- NOTE | 2016-12-05 07:54 | NUR ---
MS RN INITIAL NOTES RECEIVED PATIENTSLEEPING BUT EASILY AROUSABLE A/OX2 ABLE TO MAKE NEEDS KNOWN. DENIES PAIN OR DISCOMFORT. DENIES SOB. RESPIRATIONS EVEN AND UNLABORED. SKIN WARM AND DRY TO TOUCH. WITH 2L VIA NC. WITH KIET PICC LINE PATENT AND INTACT, TKO. HOB SLIGHTLY ELEVATED. SIDE RAILS UP AND LOCKED. BED KEPT AT LOWEST POSITION. CALL LIGHT KEPT WITHIN EASY REACH. WILL CONTINUE TO MONITOR.
[2016-12-05 08:00] VITALS: BP 141/99
--- NOTE | 2016-12-05 08:04 | NUR ---
MS RN CLOSING NOTES NO SIGNIFICANT CHANGES OVERNIGHT. NO RESPIRATORY DISTRESS NOTED. DENIES SOB. SKIN WARM AND DRY TO TOUCH. WITH KIET PICC PATENT AND INTACT. KEPT CLEAN AND DRY. TURNED AND REPOSITIONED Q2 AND PRN. SIDE RAILS UP AND LOCKED. BED KEPT AT LOWEST POSITION. CALL LIGHT KEPT WITHIN EASY REACH. CONTINUITY OF CARE ENDORSED TO AM NURSE.
[2016-12-05] MEDS ORDERED: BENAZEPRIL HCL 10 MG TABLET PO SCH (09:00)
[2016-12-05 09:29] LABS: ABG BASE EXCESS 4.7 mmol/L; ABG OXYGEN SATURATION 93.6 % (92.0-98.5); ABG PCO2 53.4 mmHg (35.0-45.0); ABG PH 7.382 (7.350-7.450); ABG PO2 67.8 mmHg (75.0-100.0); AaDO2 68.8 mmHg; COHb 1.5 % (0.5-1.5); MetHb 0.5 % (0.0-1.5); O2Hb 91.7 % (94.0-97.0); SITE, ABG Right Radial; VENT MODE, BG NASAL CANNULA
[2016-12-05] MEDS: METOPROLOL TARTRATE 25 MG TABLET PO SCH (10:11)
[2016-12-05] MEDS: ASPIRIN 81 MG TAB.CHEW NG SCH (10:11)
[2016-12-05] MEDS: PANTOPRAZOLE 40 MG TABLET.DR PO SCH (10:11)
[2016-12-05] MEDS: BENAZEPRIL HCL 10 MG TABLET PO SCH (10:11)
[2016-12-05] MEDS: predniSONE 20 MG TABLET NG SCH (10:11)
[2016-12-05] MEDS ORDERED: ALBUTEROL FS 2.5 MG/0.5 ML VIAL.NEB NEB SCH ×2 (11:30→15:30)
[2016-12-05] MEDS ORDERED: IPRATROPIUM NEB FS 0.5 MG/2.5 ML AMPUL.NEB NEB PRN (11:30)
[2016-12-05] MEDS ORDERED: ALBUTEROL FS 2.5 MG/0.5 ML VIAL.NEB NEB PRN (11:30)
[2016-12-05] MEDS ORDERED: HYDROCODONE/APAP 5/325MG 1 EACH TABLET PO PRN (13:00)
[2016-12-05] MEDS ORDERED: MAG HYDROX/AL HYDROX/SIMETH 30 ML UDC PO PRN (13:00)
[2016-12-05] MEDS ORDERED: MAGNESIUM HYDROXIDE 30 ML UDC PO PRN (13:00)
[2016-12-05] MEDS ORDERED: ACETAMINOPHEN 325 MG TABLET PO PRN (13:00)
[2016-12-05] MEDS ORDERED: ONDANSETRON HCL/PF 4 MG/2 ML VIAL IVP PRN (13:00)
[2016-12-05] MEDS ORDERED: DEXTROSE 50%-WATER 50 ML DISP.SYRIN IV PRN (13:00)
--- NOTE | 2016-12-05 15:43 | NUR ---
PT ASKED IF SHE CAN "SKIP THIS TREATMENT." PT IN NO RESP.DISTRESS OR SOB NOTED. MEDS RETURNED BACK IN [facility].
[2016-12-05 16:00] VITALS: BP 123/69
--- NOTE | 2016-12-05 18:57 | NUR ---
RN NOTE PATIENT DISCHARGED , PT HAS HAD PERIODS OF DECREASED O2 SATURATION TONIGHT UNKNOWN ORIGIN PATIENT HAS HX OF COPD . NO DISTRESS NOTED . REPORT CALLED TO TADEO RESPAndres LOWRY RN TOOK REPORT AND ACKNOWLEDGE UNDERSTANDING. NO MEDICATIONS ADMINISTERED PRIOR TO DISCHARGE. PT IN STABLE CONDITION UPON DISCHARGE CHARGE NURSE LONI NOTIFIED AND HELPED WITH DISCHARGE
[2016-12-05] MEDS ORDERED: ENOXAPARIN SODIUM 40 MG/0.4 ML DISP.SYRIN SQ SCH (21:00)
[2016-12-05] MEDS ORDERED: METOPROLOL TARTRATE 25 MG TABLET PO SCH (21:00)
[2016-12-05] MEDS ORDERED: ATORVASTATIN 10 MG TABLET NG SCH (22:00)
[2016-12-05] MEDS ORDERED: MIRTAZAPINE 15 MG TABLET PO SCH (22:00)
[2016-12-06] MEDS ORDERED: PANTOPRAZOLE 40 MG TABLET.DR PO SCH (07:30)
[2016-12-06] MEDS ORDERED: predniSONE 20 MG TABLET NG SCH (09:00)
[2016-12-06] MEDS ORDERED: ASPIRIN 81 MG TAB.CHEW NG SCH (09:00)
[2016-12-18] MEDS ORDERED: PALIPERIDONE PALMITATE 156 MG IM SCH (09:00)
== END 2016-12-05 19:03 | DRG 870 ==
LOC: ER 10:34 → TELE-TD 12:30 → ICUOV 23:46 → ICU 11-22 16:30 → ICUOV 11-29 09:12 → TELE-TD 11-29 18:39 → TELE1 12-01 11:02 → MEDSG1 12-04 08:56
PROVIDERS: ADMIT Internal Medicine; ATTEND Internal Medicine
PROC: 0BH17EZ Insertion of Endotracheal Airway into Trachea, Via Natural or Artificial Opening (ICD-10-PCS; principal; 2016-11-18)
PROC: 5A1955Z Respiratory Ventilation, Greater than 96 Consecutive Hours (ICD-10-PCS; 2016-11-18)
PROC: B548ZZA Ultrasonography of Superior Vena Cava, Guidance (ICD-10-PCS; 2016-11-22)
PROC: 02HV33Z Insertion of Infusion Device into Superior Vena Cava, Percutaneous Approach (ICD-10-PCS; 2016-11-22)
DX: A41.9 Sepsis, unspecified organism (principal); J15.6 Pneumonia due to other Gram-negative bacteria; G92 Toxic encephalopathy; N17.0 Acute kidney failure with tubular necrosis; E43 Unspecified severe protein-calorie malnutrition; R65.21 Severe sepsis with septic shock; J96.22 Acute and chronic respiratory failure with hypercapnia; J96.21 Acute and chronic respiratory failure with hypoxia; J69.0 Pneumonitis due to inhalation of food and vomit; J90 Pleural effusion, not elsewhere classified; J44.1 Chronic obstructive pulmonary disease with (acute) exacerbation; J44.0 Chronic obstructive pulmonary disease with (acute) lower respiratory infection; E87.2 Acidosis; I10 Essential (primary) hypertension; F32.9 Major depressive disorder, single episode, unspecified; I70.0 Atherosclerosis of aorta; F41.9 Anxiety disorder, unspecified; E86.0 Dehydration; E11.9 Type 2 diabetes mellitus without complications; F20.9 Schizophrenia, unspecified; R41.82 Altered mental status, unspecified; R13.10 Dysphagia, unspecified
CPT/HCPCS: 31720; 36415; 36569; 36600; 71010-TC; 80048-TC; 80053-TC; 80076-TC; 81000-TC; 82803-TC; 82962-TC; 83605-TC; 83735-TC; 83880; 84100-TC; 84478-TC; 84484-TC; 85025-TC; 85730-TC; 87040-TC; 87070-TC; 87081-TC; 87086-TC; 92526; 92611-TC; 93307-TC; 94002-TC; 94003-TC; 94762-TC; 94799-TC; 97001-TC; 97110-TC; 97116-TC; 97530-TC; A4606; C1751; C9113; J0456; J0696; J1650; J1815; J1940; J2405; J2930; J3010; J3370; J3475; J3490; J7030; J7050; J7060; J7070; Z7610